=== PATIENT | female | born 1935 | race Caucasian/White ===

== ENCOUNTER 2017-03-09 20:22 | Emergency (ER) | payer MEDICARE, SELFPAY | END 2017-03-09 23:48 | disposition home or self-care (01) | PROVIDERS: Emergency Provider Emergency Medicine; Family Provider Family Medicine; Visit Provider Emergency Medicine | DX: S01.01XA Laceration without foreign body of scalp, initial encounter (principal); Z23 Encounter for immunization; W10.9XXA Fall (on) (from) unspecified stairs and steps, initial encounter; Y92.019 Unspecified place in single-family (private) house as the place of occurrence of the external cause; Z88.2 Allergy status to sulfonamides; Z88.1 Allergy status to other antibiotic agents; Z88.6 Allergy status to analgesic agent; E78.5 Hyperlipidemia, unspecified; F41.8 Other specified anxiety disorders | CPT/HCPCS: 70450; 71010; 72125; 72170; 80053; 82550; 82553; 84484; 85025; 90471; 90715; 96365; 96375; 99284; J2405 ==

== ENCOUNTER → 2017-04-17 12:04 | Outpatient (CLI) | payer MEDICARE, SELFPAY ==
--- NOTE | 2017-04-17 12:14 | XR_ITS ---
XR chest 2V Ordering Physician: Audra Salter Patient Age: 81 years: Female HISTORY: ITS.REASON: UPPER RESPIRATORY TRACT INFECTION TECHNIQUE: PA lateral chest COMPARISON : Portable chest March 09, 2017 FINDINGS Lungs are clear with nothing definitely acute. Mild hyperexpansion most evident left upper lung noted but but may be accentuated by slight rotation on today's chest film . Epidural stimulator again noted mid thoracic area fusion MR spine noted. Round dense likely calcified granuloma lateral view projected at superior retrosternal region. . Most likely Old right anterior 6 and possibly 7 healed rib fractures however these are evident on February 2017 CXR nor rib series December 2016 IMPRESSION: ------ Lungs clear no active disease . No focal pneumonia. No pneumothorax. Old healing right anterior sixth and seventh rib fractures new were not evident on February CXR
== END ==
PROVIDERS: PCP Family Medicine; Visit Provider Nurse Practitioner Family
DX: J06.9 Acute upper respiratory infection, unspecified (principal)
CPT/HCPCS: 71046

== ENCOUNTER → 2017-08-07 13:48 | Outpatient (CLI) | payer MEDICARE, SELFPAY ==
--- NOTE | 2017-08-07 13:52 | XR_ITS ---
XR chest 2V HISTORY: ITS.REASON: FATIGUE ORDERING PHYSICIAN: Nick Salguero MD PATIENT AGE: 81 years COMPARISON: 04/17/2018 FINDINGS: Unremarkable cardiovascular structures. Epidural stimulator device remains in place in the midthoracic region. Lungs are clear of acute infiltrate. There are old fractures of the right sixth and seventh ribs anteriorly as before. Calcified granulomas noted over the anterior clear space. Prior fusion of the lumbar spine. IMPRESSION: No change with no acute finding
== END ==
PROVIDERS: PCP Family Medicine; Visit Provider Family Medicine
DX: R53.83 Other fatigue (principal)
CPT/HCPCS: 71046; 93005

== ENCOUNTER → 2017-08-09 13:48 | Outpatient (CLI) | payer MEDICARE, SELFPAY | PROVIDERS: Family Provider Family Medicine; PCP Family Medicine; Visit Provider Family Medicine | DX: R53.83 Other fatigue (principal); R07.9 Chest pain, unspecified | CPT/HCPCS: 93306 ==

== ENCOUNTER → 2017-08-21 09:53 | Outpatient (POV) | payer MEDICARE, SELFPAY ==
[2017-08-21 10:02] VITALS: BP 145/83; PULSE 79; RESP 18; O2SAT 95
--- NOTE | 2017-08-21 16:36 | HMH.PMCON ---
Assessment and Plan (1) Degenerative disc disease, lumbar Current visit: Yes Status: Chronic Category: Medical Code(s): M51.36 - Other intervertebral disc degeneration, lumbar region (2) Degenerative disc disease, cervical Current visit: Yes Status: Chronic Category: Medical Code(s): M50.30 - Other cervical disc degeneration, unspecified cervical region (3) Post laminectomy syndrome Current visit: Yes Status: Chronic Category: Medical Code(s): M96.1 - Postlaminectomy syndrome, not elsewhere classified - Assessment and plan all Dx Assessment and Plan for all problems:: Patient is not a narcotic candidate at this time due to her diazepam use. Recent states she was never tried on any nonnarcotic medications. Patient states she was started on Lortab immediately. Patient was negative at her last urine drug screen at her previous pain management clinic. Patient does have a neurostimulator in place by [facility] I believe that it would be beneficial for the patient to have this turned on and potentially reprogram. I will set this up for her. Patient was given information on both injections and other modalities of pain treatment that we may be able to offer her. Patient is going to call us if she like to follow-up with us. This note was dictated using voice recognition software and may contain errors or omissions HPI - Data of Consult Consult date: 08/21/17 Requesting Physician: Nia Wilkes APRN Primary Care Provider: Nick Salguero MD Family Provider: Nick Salguero MD - Consult Narrative Reason for consult: back and neck pain History of present illness: Ms. Linda is a 81 year old female presents today for consultation in regards to her back and neck pain. Patient has had surgery on her lumbar spine and also has some disc degenerative disc disease in the lumbar spine. She has been to pain management in [place] where she was feeling Lortab 10 mg 1 p.o. twice daily. Patient states however she was taking 1-1/2 pills in the morning instead of G1. Patient is also on diazepam 10 mg 1 p.o. 3 times daily. Patient states that she has had 3 nervous breakdowns along with psychiatric treatment for several years. Patient states underwent shock treatment therapy as well. Patient states she has basal cell carcinoma however she states that she has been told by one oncologist that she has been clear of cancer. Patient is going to be seeking another opinion from another closer oncologist. Patient does have a [employer] stimulator she does not use this. Patient states she has not turned it on a long time however she does keep it fully charged. Patient states that she is not interested in injection therapy at this time. Patient states she has had this in the past with minimal relief. Patient states she would like to just receive her Lortab at this time. I discussed with the patient that due to regulations with her diazepam and ORT score we would not be able to continue her Lortab. Patient and I discussed utilizing her stimulator. Patient would like to meet with a [employer] new accounts banking representative and see if she can get better coverage. I gave the patient information on both stimulation and injections and intrathecal therapies. I do know if she would be an exact candidate for it however patient is going to review this and give us a call if she is interested in pursuing treatment with us. Of note according to her last pain treatment center she has canceled her last appointment they are also she tested negative for all substances in her urine drug screen. CC: Nia Wilkes APRN [facility] History I have reviewed the patient's past medical history: Yes Other Medical History: Reports: Arthritis Laterality Cases: Bilateral: Carpal Tunnel Release Other Surgeries: Yes: Cholecystectomy, Skin Cancer Excision - *Social History Educational Level: Completed College Alcohol Intake: never Occupational Status: re
--- NOTE | 2017-08-21 16:39 | P.CONS_ITS ---
Assessment and Plan (1) Degenerative disc disease, lumbar Current visit: Yes Status: Chronic Category: Medical Code(s): M51.36 - Other intervertebral disc degeneration, lumbar region (2) Degenerative disc disease, cervical Current visit: Yes Status: Chronic Category: Medical Code(s): M50.30 - Other cervical disc degeneration, unspecified cervical region (3) Post laminectomy syndrome Current visit: Yes Status: Chronic Category: Medical Code(s): M96.1 - Postlaminectomy syndrome, not elsewhere classified - Assessment and plan all Dx Assessment and Plan for all problems:: Patient is not a narcotic candidate at this time due to her diazepam use. Recent states she was never tried on any nonnarcotic medications. Patient states she was started on Lortab immediately. Patient was negative at her last urine drug screen at her previous pain management clinic. Patient does have a neurostimulator in place by [facility] I believe that it would be beneficial for the patient to have this turned on and potentially reprogram. I will set this up for her. Patient was given information on both injections and other modalities of pain treatment that we may be able to offer her. Patient is going to call us if she like to follow-up with us. This note was dictated using voice recognition software and may contain errors or omissions HPI - Data of Consult Consult date: 08/21/17 Requesting Physician: iNa Wilkes APRN Primary Care Provider: Nick Salguero MD Family Provider: Nick Salguero MD - Consult Narrative Reason for consult: back and neck pain History of present illness: Ms. Linda is a 81 year old female presents today for consultation in regards to her back and neck pain. Patient has had surgery on her lumbar spine and also has some disc degenerative disc disease in the lumbar spine. She has been to pain management in [place] where she was feeling Lortab 10 mg 1 p.o. twice daily. Patient states however she was taking 1-1/2 pills in the morning instead of G1. Patient is also on diazepam 10 mg 1 p.o. 3 times daily. Patient states that she has had 3 nervous breakdowns along with psychiatric treatment for several years. Patient states underwent shock treatment therapy as well. Patient states she has basal cell carcinoma however she states that she has been told by one oncologist that she has been clear of cancer. Patient is going to be seeking another opinion from another closer oncologist. Patient does have a [employer] stimulator she does not use this. Patient states she has not turned it on a long time however she does keep it fully charged. Patient states that she is not interested in injection therapy at this time. Patient states she has had this in the past with minimal relief. Patient states she would like to just receive her Lortab at this time. I discussed with the patient that due to regulations with her diazepam and ORT score we would not be able to continue her Lortab. Patient and I discussed utilizing her stimulator. Patient would like to meet with a [employer] sales representative malt liquors and see if she can get better coverage. I gave the patient information on both stimulation and injections and intrathecal therapies. I do know if she would be an exact candidate for it however patient is going to review this and give us a call if she is interested in pursuing treatment with us. Of note according to her last pain treatment center she has canceled her last appointment they are also she tested negative for all substances in her urine drug screen. CC: Nia Wilkes APRN [facility] History I have reviewed the
== END ==
PROVIDERS: Family Provider Family Medicine; PCP Family Medicine; Visit Provider Clinical Nurse Specialist Family Health
DX: M50.30 Other cervical disc degeneration, unspecified cervical region (principal); M96.1 Postlaminectomy syndrome, not elsewhere classified; M51.36 Other intervertebral disc degeneration, lumbar region
CPT/HCPCS: 99202

== ENCOUNTER → 2017-08-28 09:32 | Outpatient (POV) | payer MEDICARE, SELFPAY ==
[2017-08-28 10:00] VITALS: BP 138/84; PULSE 93; RESP 18; O2SAT 96; BMI 22.6
--- NOTE | 2017-08-28 10:17 | HMH.PAINSOAP ---
[facility] Pain Management SOAP Note Subjective:: Patient is a 81-year-old white female who presents today for follow-up. Patient requested to see us today because she states she did not know if she was going to have her narcotic prescription written for her not. I discussed this with her. Patient is not a narcotic candidate due to diazepam use, past psychiatric issues, her inappropriate taking of medication according to her she takes more pills than prescribed. Patient also had a urine drug screen at her last pain management clinic visit that was negative for all substances. Patient has not been discharged from this clinic. Patient was seen on Monday by [facility] loss prevention representative to help reprogram her stimulator. And and I discussed her returning to Dr. Nance and discussing medication management. Patient states she is unsure of who Dr. Nance is. Patient had been receiving medication from him for the past 2 months. I told her that I felt like she should return to her pain clinic in [place] to discuss care with them. I did give her options as far as therapies that we would be able to utilize. She is uninterested in all of these. Objective:: Physical Exam General: Alert and oriented x3, no acute distress, pleasant and cooperative, [on room air] Lungs: Resps E/U, Symmetrical chest expansion, Eyes: PERRL Musculoskeletal: Flexion and extension of lumbar spine somewhat guarded secondary to pain, deep tendon reflexes normal, strength in upper and lower extremities [5/5], [abnormal gait noted] Neurological: speech clear, emulsion coater equal, no gross sensory deficits Assessment:: Degenerative disc disease of the lumbar spine, degenerative disc disease of the cervical spine, postlaminectomy syndrome Plan:: Patient left the office stating that she was going to call her previous pain management clinic. I told her she was interested in any of the therapeutic options that I gave her she was welcome to give us a call back. This note was dictated using voice recognition software and may contain errors or omissions
--- NOTE | 2017-08-28 10:20 | P.CONS_ITS ---
[facility] Pain Management SOAP Note Subjective:: Patient is a 81-year-old white female who presents today for follow-up. Patient requested to see us today because she states she did not know if she was going to have her narcotic prescription written for her not. I discussed this with her. Patient is not a narcotic candidate due to diazepam use, past psychiatric issues, her inappropriate taking of medication according to her she takes more pills than prescribed. Patient also had a urine drug screen at her last pain management clinic visit that was negative for all substances. Patient has not been discharged from this clinic. Patient was seen on Monday by [facility] international sales representative to help reprogram her stimulator. And and I discussed her returning to Dr. Nance and discussing medication management. Patient states she is unsure of who Dr. Nance is. Patient had been receiving medication from him for the past 2 months. I told her that I felt like she should return to her pain clinic in [place] to discuss care with them. I did give her options as far as therapies that we would be able to utilize. She is uninterested in all of these. Objective:: Physical Exam General: Alert and oriented x3, no acute distress, pleasant and cooperative, [ on room air] Lungs: Resps E/U, Symmetrical chest expansion, Eyes: PERRL Musculoskeletal: Flexion and extension of lumbar spine somewhat guarded secondary to pain, deep tendon reflexes normal, strength in upper and lower extremities [5/5], [abnormal gait noted] Neurological: speech clear, maple sugar maker equal, no gross sensory deficits Assessment:: Degenerative disc disease of the lumbar spine, degenerative disc disease of the cervical spine, postlaminectomy syndrome Plan:: Patient left the office stating that she was going to call her previous pain management clinic. I told her she was interested in any of the therapeutic options that I gave her she was welcome to give us a call back. This note was dictated using voice recognition software and may contain errors or omissions
== END ==
PROVIDERS: Family Provider Family Medicine; PCP Family Medicine; Visit Provider Clinical Nurse Specialist Family Health
DX: M50.30 Other cervical disc degeneration, unspecified cervical region (principal); M51.36 Other intervertebral disc degeneration, lumbar region
CPT/HCPCS: 99212

== ENCOUNTER → 2017-09-26 09:31 | Outpatient (CLI) | payer MEDICARE, SELFPAY ==
--- NOTE | 2017-09-26 09:39 | XR_ITS ---
XR hip RT 2-3V w/pelvis HISTORY: Posttraumatic pain ITS.REASON: FALL ON RIGHT HIP X 1 WEEK AGO ORDERING PHYSICIAN: Nick Salguero MD PATIENT AGE: 81 years COMPARISON: 01/09/2017 FINDINGS: No acute fracture or dislocation. Lucency noted along the right ilium medially and could be due to postsurgical change. Injection granulomas are present bilaterally. Prior fusion of the lower lumbar spine with epidural stimulator device noted. IMPRESSION: No acute finding
== END ==
PROVIDERS: PCP Family Medicine; Visit Provider Family Medicine
DX: M25.551 Pain in right hip (principal); R20.2 Paresthesia of skin
CPT/HCPCS: 73502

== ENCOUNTER → 2017-10-13 08:46 | Outpatient (CLI) | payer MEDICARE, SELFPAY ==
--- NOTE | 2017-10-13 08:48 | MM_ITS ---
MM Dig screening mamm BI w/CAD ORDERING PHYSICIAN : Nick Salguero MD PATIENT AGE: 81 years GENDER: Female HISTORY. Screening. No hormones no new complaints no breast procedures. Note history of basal cell cancer COMPARISON: Previous studies from [facility] dated August 2015 and August 2016 TECHNIQUE: Standard CC and MLO images were obtained. R2 CAD reviewed. Also axillary cc view right and left breast FINDINGS: . RIGHT BREAST:Overall stable appearance. Against initially seen at the lateral breast dissipates on a repeat axillary cc view and consistent, stable since last year. LEFT BREAST:No new areas of concern. Follow-up in one year The scattered calcifications at the deep central breast are of fair stable since 2016. IMPRESSION: ...... Stable bilateral mammogram. Follow-up in one year recommended. BI-RADS Category: 2 Benign Finding(s) RECOMMENDED FOLLOW-UP: 1YR 1 YEAR FOLLOW-UP (A letter has been sent to the patient regarding results of the study.)
== END ==
PROVIDERS: Family Provider Family Medicine; PCP Family Medicine; Visit Provider Family Medicine
DX: Z12.31 Encounter for screening mammogram for malignant neoplasm of breast (principal)
CPT/HCPCS: 77067

== ENCOUNTER → 2017-11-15 10:50 | Outpatient (CLI) | payer MEDICARE, SELFPAY | PROVIDERS: PCP Family Medicine; Visit Provider Family Medicine | DX: R55 Syncope and collapse (principal) | CPT/HCPCS: 93225; 93226 ==

== ENCOUNTER → 2017-11-22 13:52 | Outpatient (CLI) | payer MEDICARE, SELFPAY ==
--- NOTE | 2017-11-22 | CI_ITS ---
Cerebrovascular Exam Indications: 780.2 Syncope and collapse. 780.4 Dizziness and giddiness. IMPRESSIONS 1. The bilateral vertebral arteries are patent with normal antegrade flow. 2. Study suggests less than 20% stenosis involving the right internal carotid artery. 3. Study suggests less than 20% stenosis involving the left internal carotid artery. History: Syncope. Carotid duplex study. Complete study and Doppler flow study including spectral analysis, color and dupree scale imaging. Height: Height: 162.6cm. Height: 64in. Weight: Weight: 62.6kg. Weight: 137.7lb. Body mass index: BMI: 23.7kg/m^2. Body surface area: BSA: 1.69m^2. Location: Vascular laboratory. Patient status: Outpatient. Tables: Arterial flow: + +--------+--------+ Location V sys V ed + +--------+--------+ Right CCA - proximal 59.1cm/s 15.1cm/s + +--------+--------+ Right CCA - distal 48cm/s 12.7cm/s + +--------+--------+ Right ECA 72.3cm/s -------- + +--------+--------+ Right ICA - proximal 48cm/s 14.8cm/s + +--------+--------+ Right ICA - mid 66.8cm/s 20.1cm/s + +--------+--------+ Right ICA - distal 86.3cm/s 28.6cm/s + +--------+--------+ Right vertebral 49cm/s -------- + +--------+--------+ Left CCA - proximal 73.5cm/s 17.6cm/s + +--------+--------+ Left CCA - distal 54.6cm/s 14.9cm/s + +--------+--------+ Left ECA 63.4cm/s -------- + +--------+--------+ Left ICA - proximal 43.7cm/s 14.4cm/s + +--------+--------+ Left ICA - mid 85.5cm/s 24.8cm/s + +--------+--------+ Left ICA - distal 82.8cm/s 25.1cm/s + +--------+--------+ Left vertebral 37.5cm/s -------- + +--------+--------+ Velocity ratios: + + + + + + Right, V sys Right, V ed Left, V sys Left, V ed + + + + + + Max ICA/dist CCA 1.8 2.25 1.57 1.68 + + + + + + (Report amended ) Electronically signed by: Aleksandr Ocasio [id number]
--- NOTE | 2017-11-22 13:56 | CT_ITS ---
CT head/brain wo con HISTORY: ITS.REASON: SYNCOPE, CLOSED HEAD INJURY, pain, trauma to the posterior skull on the right ORDERING PHYSICIAN: Nick Salguero MD PATIENT AGE: 82 years COMPARISON: None TECHNIQUE: Axial images obtained without contrast. Brain and bone windows reviewed. All CT scans at the facility use one or more dose reduction, viz: automated exposure control, ma/kV adjustment per patient size (including targeted exams where dose is matched to indication, i.e. head), or iterative reconstruction technique. FINDINGS: No midline shift, mass effect, intracranial hemorrhage, hydrocephalus, or extra-axial fluid collection is evident. Periventricular ischemic gliotic changes are present. The calvarium has an unremarkable appearance. There is a small amount fluid in the left mastoid sinus. No sinus air-fluid levels.. IMPRESSION: 1. No acute intracranial findings. 2. Small left mastoid effusion
--- NOTE | 2017-11-22 16:01 | XR_ITS ---
EXAM: XR lumbar spine min 4V HISTORY: ITS.REASON: LOW BACK PAIN ORDERING PHYSICIAN: Nick Salguero MD PATIENT AGE: 82 years COMPARISON: 06/20/2007 FINDINGS: There has been prior posterior fusion with interpedicular screws at L3, L4, and L5. There is good alignment. There is severe degenerative disc disease at L2-L3 with mild retrolisthesis of L2 on L3 of approximately 8 mm. Degenerative disc disease is also present at L5-S1. There is a neurostimulator device present in the epidural region at T8 and T9 area. There is mild levoscoliosis of the lumbar spine. No fracture or dislocation. No lytic or blastic change. IMPRESSION: 1. Prior lumbar fusion from L3 to L5. 2. Severe degenerative disc disease at L2-L3 and L5-S1 with mild retrolisthesis of L2 on L3 of approximately 8 mm
--- NOTE | 2017-11-22 16:01 | XR_ITS ---
XR coccyx 2V CLINICAL INDICATION: ITS.REASON: LOW BACK PAIN ORDERING PHYSICIAN: Nick Salguero MD PATIENT AGE: 82 years Comparison: None FINDINGS: The sacrum and coccyx have an unremarkable appearance. No fracture or dislocation. Irregular density is present along the medial aspect of the ileum on the right which has a somewhat similar appearance on 09/26/2017. This is nonspecific having both sclerotic and lucent areas possibly related to prior area of bone harvesting site. A destructive lesion however is not excluded based on the radiographic appearance. Please correlate with patient's surgical history. CT may be of further value if clinically warranted. IMPRESSION: 1. Negative coccyx. 2. Mixed sclerotic and lucent lesion of the right ilium which could be related to prior bone harvesting site/surgery or could represent a true bone lesion
== END ==
PROVIDERS: Family Provider Family Medicine; PCP Family Medicine; Visit Provider Family Medicine
DX: R55 Syncope and collapse (principal); S09.90XA Unspecified injury of head, initial encounter; M54.5 Low back pain
CPT/HCPCS: 70450; 72110; 72220; 93880

== ENCOUNTER → 2018-01-23 11:50 | Outpatient (CLI) | payer MEDICARE, SELFPAY ==
--- NOTE | 2018-01-23 11:53 | XR_ITS ---
XR knee RT 3V HISTORY: ITS.REASON: RT KNEE PAIN, FALL INJURY ORDERING PHYSICIAN: Nick Salguero MD PATIENT AGE: 82 years FINDINGS: Status post total knee replacement. No fracture or dislocation. No change from 07/29/2016. IMPRESSION: Status post total knee replacement with no acute finding
== END ==
PROVIDERS: PCP Family Medicine; Visit Provider Family Medicine
DX: M25.561 Pain in right knee (principal)
CPT/HCPCS: 73562

== ENCOUNTER → 2018-06-11 12:46 | Outpatient (CLI) | payer MEDICARE, SELFPAY ==
[2018-06-11 14:59] LABS: Thyroid Stimulating Hormone 1.73 uIU/ml (0.358-3.740)
== END ==
PROVIDERS: Visit Provider Specialist
DX: R25.1 Tremor, unspecified (principal)
CPT/HCPCS: 36415; 84443

== ENCOUNTER 2018-11-26 15:02 | Observation (INO) ==
--- NOTE | 2018-11-26 15:25 | History & Physical Report ---
*Admission Date: 11/26/18 <Audra Salter 11/26/18 15:27> *Chief complaint: weakness; falls; AMS <JoieAudra 11/26/18 15:27> *History of present illness: Ms. Linda is an 83-year-old female with a history of anxiety and depression, migraines, ulcers, degenerative disc disease, osteoarthritis, and hyperlipidemia who presented to the office of [facility] today with weakness and unsteadiness with 2 recent falls, drooling, changes in her voice, and strangling when she eats or drinks.. She presented with her development director who reports that she is not eating well and may not be taking her medications correctly. Patient reports constipation and urinary frequency with incontinence. She states that she has been unable to get out of the chair by herself and she simply cannot care for herself at this time. She denies chest pain, shortness of breath, nausea/vomiting and diarrhea. <Audra Salter 11/26/18 16:23> [facility] History Medical History: Reports:: Anxiety, Cancer, Depression, Gastroesophageal Reflux Disease(GERD), Ulcer Denies:: Diabetes Mellitus Type 1, Diabetes Mellitus Type 2 <JoieAudra 11/26/18 16:23> *Have you ever received a pneumonia vaccine?: Yes <JoieAudra 11/26/18 15:27> *Have you received a flu vaccine this season?: Yes <JoieAudra 11/26/18 15:27> Other Medical History: Reports: Arthritis, Cataracts <Audra Salter 11/26/18 15:27> Laterality Cases: Bilateral: Carpal Tunnel Release <Audra Salter 11/26/18 15:27> Other Surgeries: Yes: Cholecystectomy, Hysterectomy-Total, Skin Cancer Excision, Other <Audra Salter 11/26/18 15:27> Amputation: No <Audra Salter 11/26/18 15:27> Fractures: No <Audra Salter 11/26/18 15:27> - *Social History Smoking Status: Never smoker <Audra Salter 11/26/18 15:27> Alcohol Intake: never <Audra Salter 11/26/18 15:27> Substance Use Type: denies use <Radha Salterhy 11/26/18 15:27> *Occupational Status:: retired <Radha Salterhy 11/26/18 15:27> Housing: house <Radha Salterhy 11/26/18 15:27> Household Members: none <Radha Salterhy 11/26/18 15:27> *Travel in the last 8 weeks: None <Radha Salterhy 11/26/18 16:23> - Psychiatric History Pschychiatric History:: Reports:: Anxiety, Depression <Radha Salterhy 11/26/18 15:27> Family Hx:: Cancer, Coronary Artery Disease <JoieAudra 11/26/18 16:23> Review of Systems - Constitutional Denies fever(s), Denies headache(s) <JoieAudra 11/26/18 16:23> - Eyes Denies change in vision <JoieAudra 11/26/18 16:23> - ENT Reports change in voice, Reports poor balance, Reports difficulty swallowing, Denies ear pain, Denies headache(s), Denies sore throat <JoieAudra 11/26/18 16:23> - *Cardiovascular Denies chest pain, Denies shortness of breath, Denies irregular heart rhythm, Denies leg swelling <JoieAudra 11/26/18 16:23> - *Respiratory Denies cough, Denies shortness of breath, Denies coughing up blood <JoieAudra 11/26/18 16:23> - *Gastrointestinal Reports constipation (Last stool was 4 to 5 days ago), Denies abdominal pain, Denies change in stools, Denies bright, red blood in stools, Denies loose stools, Denies nausea, Denies vomiting <JoieAudra 11/26/18 16:23> - *Genitourinary Reports urinary incontinence, Denies painful urination, Denies blood in urine <JoieAudra 11/26/18 16:23> Comments: Urinary frequency and large amounts <JoieAudra 11/26/18 16:23> - *Musculoskeletal Reports joint pain, Reports muscle weakness, Denies body aches <JoieAudra 11/26/18 16:23> - *Neurologic Reports abnormal speech, Reports unsteadiness, Reports frequent falls, Reports tremor(s), Denies seizure-like activity <JoieAudra - 11/26/18 16:23> - Psychiatric Reports anxiety <Audra Salter - 11/26/18 16:23> Meds Home Medications Medication Instructions Recorded Confirmed Type aspirin 81 mg tablet,delayed 81 mg PO DAILY tab 09/06/17 11/26/18 History release cholecalciferol (vitamin D3) 1,000 1,000 unit PO DAILY cap 09/06/17 11/26/18 History unit capsule diazepam 10 mg tablet 10 mg PO TID 09/06/17 11/26/18 History hydrocodone 10 mg-acetaminophen 1 tab PO QID tab 09/06/17 11/26/18 History 325 mg tablet pravastatin 20 mg tablet 20 mg PO QHS 09/06/17 11/26/18 History tizanidine 4 mg capsule 4 mg PO QHS cap 09/06/17 11/26/18 History trazodone 50 mg tablet 100 mg PO QHS PRN #90 tab 09/03/18 11/26/18 History Docusate Sodium [Colace] 100 mg PO BID 11/26/18 11/26/18 History Ferrous Sulfate [Ferrous Sulfate 325 mg PO DAILY 11/26/18 11/26/18 History 325mg Tablet] Nitrofurantoin Monohyd/M-Cryst 100 mg PO BID 11/26/18 11/26/18 History [Nitrofurantoin [place]-Mcr 100 mg] Perphenazine 2 mg PO TID 11/26/18 11/26/18 History <Nick Salguero - 11/26/18 20:20> Allergies Allergy/AdvReac Type Severity Reaction Status Date / Time buspirone [From BuSpar] Allergy Mild Dizziness Verified 11/26/18 16:38 citalopram [From Celexa] Allergy Mild Blurry Verified 11/26/18 16:38 Vision primidone Allergy Mild Dizziness Verified 11/26/18 16:38 carbamazepine Allergy Unknown N/V, HIGH Verified 09/03/18 09:42 TEMP cefaclor [From CECLOR] Allergy Unknown I-HIVES Verified 09/03/18 09:42 celecoxib [From CELEBREX] Allergy Unknown UNKNOWN Verified 09/03/18 09:42 codeine Allergy Unknown NA-NAUSEA/V Verified 09/03/18 09:42 OMITING levofloxacin Allergy Unknown LEGS Verified 09/03/18 09:42 JERKING sulfamethoxazole Allergy Unknown THRUSH Verified 09/03/18 09:42 [From BACTRIM] trimethoprim [From BACTRIM] Allergy Unknown THRUSH Verified 09/03/18 09:42 olanzapine [From Zyprexa] AdvReac Mild Verified 11/26/18 16:38 <Nick Salguero - 11/26/18 20:20> Exam Vital signs and Labs for Last 24 Hours: Temp Pulse Resp BP Pulse Ox 99.3 F 80 17 166/75 H 95 11/26/18 19:42 11/26/18 19:42 11/26/18 19:42 11/26/18 19:42 11/26/18 19:42 Laboratory Results - last 24 hr 11/26/18 16:05: WBC 10.2, RBC 3.99 L, Hgb 12.1 L, Hct 38.0, MCV 95.3, MCH 30.2, MCHC 31.7 L, RDW 13.7, Plt Count 282, MPV 7.3 L, Neut % (Auto) 69.2, Lymph % (Auto) 21.4, [place] % (Auto) 8.0, Eos % (Auto) 1.2, Baso % (Auto) 0.3, Neut # (Auto) 7.1, Lymph # (Auto) 2.2, [place] # (Auto) 0.8, Eos # (Auto) 0.1, Baso # (Auto) 0.0 11/26/18 16:05: PT 10.5, INR 1.01, APTT 24.4 11/26/18 16:05: Sodium 141, Potassium 3.6, Chloride 102, Carbon Dioxide 30, Anion Gap 12.6, BUN 25 H, Creatinine 1.14 H, Estimated Creat Clear 37, Estimated GFR 46 L, Est GFR ( Amer) 55 L, Glucose 119 H, Calcium 9.2, Total Bilirubin 0.3, AST 19, ALT 23, Alkaline Phosphatase 65, Total Protein 7.5, Albumin 3.6, Globulin 3.9 H, Albumin/Globulin Ratio 0.9 L <Nick Salguero - 11/26/18 20:20> I & O for Last 24 hours: Intake & Output 11/24/18 11/25/18 11/26/18 11/27/18 11:59 11:59 11:59 11:59 Intake Total 50 / 50 Balance 50 / 50 Weight 135 lb <Nick Salguero - 11/26/18 20:20> - Constitutional no acute distress, thin [facility]/26/[facility] 16:23> Comments: Frail <Radha Salterhy 11/26/18 16:23> - *Routine HEENT Exam Head: Present: normocephalic (Thinning hair), atraumatic <[facility] 11/26/18 16:23> Eye: Present: EOMI, PERRL. Absent: conjunctival icterus, scleral injection <Radha Salterhy 11/26/18 16:23> ENT: Present: mucous membranes dry, oropharynx clear, nares patent, TM's clear bilaterally <[facility] 11/26/18 16:23> - *Routine Neck Exam Present: supple. Absent: carotid bruit, lymphadenopathy, thyromegaly <[facility] 11/26/18 16:23> - *Routine Respiratory Exam Present: CTA bilaterally (Anteriorly and posteriorly) <Audra Salter 12/06 16:23> - *Routine Cardiovascular Exam Present: RRR [facility] 11/26/18 16:23> - *Routine Abdominal Exam Present: soft, normoactive bowel sounds. Absent: tenderness, distended <Audra Salter 11/26/18 16:23> - *Routine Extremities Exam Absent: edema [facility]> Comments: No leg edema <[facility] 11/26/[facility] 16:23> - *Routine Neurological Exam Present: alert, oriented X3, CN II-XII intact (Muscle strength is diminished in all extremities and is equal), moving all extremities, normal speech (Speech is slow and soft), tremors <[facility] 11/26/18 16:23> - Routine Psychiatric Exam Present: normal affect, normal thought process, cooperative <[facility] 11/26/18 16:23> Assessment and Plan (1) Dysphagia Current visit: Yes Status: Acute Category: Medical Code(s): R13.10 - Dysphagia, unspecified (2) Altered mental status Current visit: Yes Status: Acute Category: Medical Code(s): R41.82 - Altered mental status, unspecified (3) Weakness Current visit: Yes Status: Acute Category: Medical Code(s): R53.1 - Weakness (4) Unsteady gait Current visit: Yes Status: Acute Category: Medical Code(s): R26.81 - Unsteadiness on feet (5) Frequent falls Current visit: Yes Status: Acute Category: Medical Code(s): R29.6 - Repeated falls (6) GERD (gastroesophageal reflux disease) Current visit: Yes Status: Acute Category: Medical Code(s): K21.9 - Gastro-esophageal reflux disease without esophagitis (7) Anxiety and depression Current visit: Yes Status: Chronic Category: Medical Code(s): F41.9 - Anxiety disorder, unspecified; F32.9 - Major depressive disorder, single episode, unspecified (8) Benign essential tremor Current visit: Yes Status: Chronic Category: Medical Code(s): G25.0 - Essential tremor (9) Anemia Current visit: Yes Status: Chronic Category: Medical Code(s): D64.9 - Anemia, unspecified (10) Dehydration Current visit: Yes Status: Acute Category: Medical Code(s): E86.0 - Dehydration (11) Urinary frequency Current visit: Yes Status: Acute Category: Medical Code(s): R35.0 - Frequency of micturition (12) Urinary incontinence Current visit: Yes Status: Acute Category: Medical Code(s): R32 - Unspecified urinary incontinence (13) Constipation Current visit: Yes Status: Acute Category: Medical Code(s): K59.00 - Constipation, unspecified (14) Degenerative disc disease, cervical Current visit: No Status: Chronic Category: Medical Code(s): M50.30 - Other cervical disc degeneration, unspecified cervical region <NoemyNick Kurt - 11/26/18 20:20> (1) Dysphagia Current visit: Yes Status: Acute Category: Medical Code(s): R13.10 - Dysphagia, unspecified (2) Altered mental status Current visit: Yes Status: Acute Category: Medical Code(s): R41.82 - Altered mental status, unspecified (3) Weakness Current visit: Yes Status: Acute Category: Medical Code(s): R53.1 - Weakness (4) Unsteady gait Current visit: Yes Status: Acute Category: Medical Code(s): R26.81 - Unsteadiness on feet (5) Frequent falls Current visit: Yes Status: Acute Category: Medical Code(s): R29.6 - Repeated falls (6) GERD (gastroesophageal reflux disease) Current visit: Yes Status: Acute Category: Medical Code(s): K21.9 - Gastro-esophageal reflux disease without esophagitis (7) Anxiety and depression Current visit: Yes Status: Chronic Category: Medical Code(s): F41.9 - Anxiety disorder, unspecified; F32.9 - Major depressive disorder, single episode, unspecified (8) Benign essential tremor Current visit: Yes Status: Chronic Category: Medical Code(s): G25.0 - Essential tremor (9) Anemia Current visit: Yes Status: Chronic Category: Medical Code(s): D64.9 - Anemia, unspecified (10) Dehydration Current visit: Yes Status: Acute Category: Medical Code(s): E86.0 - Dehydration (11) Urinary frequency Current visit: Yes Status: Acute Category: Medical Code(s): R35.0 - Frequency of micturition (12) Urinary incontinence Current visit: Yes Status: Acute Category: Medical Code(s): R32 - Unspecified urinary incontinence (13) Constipation Current visit: Yes Status: Acute Category: Medical Code(s): K59.00 - Constipation, unspecified (14) Degenerative disc disease, cervical Current visit: No Status: Chronic Category: Medical Code(s): M50.30 - Other cervical disc degeneration, unspecified cervical region <SalterAudra - 11/26/18 15:39> - Assessment and plan all Dx Assessment and Plan for all problems:: Patient seen and examined. Concur with above assessment and plan. She presented to the office today with constellation of symptoms suspicious for stroke. Family had noticed some episodes of confusion and she has had several recent falls and complains of slurred speech, dysphagia, weakness, inability to walk. She is admitted for further evaluation particularly to rule out possible stroke. <Nick Salguero - 11/26/18 20:20> Speech, OT and PT evaluations. Lab work. CT of the head. Stroke evaluations. Meds as per orders <Audra Salter - 11/26/18 16:23>
[2018-11-26 16:25] LABS: Basophils % 0.3 % (0.1-2.0); Eosinophils # 0.1 K/mm3 (0.0-0.4); Eosinophils % 1.2 % (0.1-12.0); Hemoglobin 12.1 g/dL (12.2-16.2); Lymphocytes # 2.2 K/mm3 (0.7-4.5); Lymphocytes % 21.4 % (10-50); Mean Corpuscular HGB Conc 31.7 g/dL (31.8-35.4); Mean Corpuscular Volume 95.3 fl (81-99); Mean Platelet Volume 7.3 fl (7.4-10.4); Monocytes # 0.8 K/mm3 (0.1-1.0); Neutrophils # 7.1 K/mm3 (1.8-7.8); Neutrophils % 69.2 % (37.0-80.0); Platelet Count 282 K/mm3 (142-424); Red Blood Count 3.99 M/mm3 (4.20-5.40); Red Cell Distribution Width 13.7 % (11.5-17.5); White Blood Count 10.2 K/mm3 (4.8-10.8)
[2018-11-26 16:34] LABS: Activated Partial Thrombo Time 24.4 seconds (23.6-34.0); INR 1.01 (0.9-1.1); Prothrombin Time 10.5 seconds (9.4-11.8)
[2018-11-26 16:36] LABS: Albumin Level 3.6 gm/dL (3.4-5.0); Albumin/Globulin Ratio 0.9 (1.1-1.8); Anion Gap 12.6 mEq/L (5-15); Bilirubin,Total 0.3 mg/dL (0.2-1.0); Calcium 9.2 mg/dL (8.5-10.1); Globulin 3.9 gm/dl (1.3-3.2); Total Protein,Serum 7.5 gm/dL (6.4-8.2)
[2018-11-27 03:31] LABS: Microscopic, Urine URINE MICROSCOPIC (MICROSCOPIC)
[2018-11-27 03:32] LABS: Appearance,Urine CLEAR (Clear); Bilirubin,Urine Negative (Negative); Blood, Urine Negative (Negative); Color,Urine YELLOW (Yellow); Glucose,Urine (UA) Negative (Negative); Ketones,Urine Negative (Negative); Leukocyte Esterase,Urine Negative (Negative); Protein,Urine Negative (Negative); Urobilinogen,Urine 0.2 EU/dl (0.2)
[2018-11-27 04:10] LABS: Bacteria,Urine Trace /lpf
--- NOTE | 2018-11-27 07:33 | Pharmacy Consult Notes ---
[facility] Pharmacy VTE Monitoring - Patient Demographics Admission date: 11/26/18 Report Date: 11/27/18 Time: 07:33 Allergies/Adverse Reactions: Patient Allergies buspirone [From BuSpar] Allergy (Mild, Verified 11/26/18 16:38) Dizziness citalopram [From Celexa] Allergy (Mild, Verified 11/26/18 16:38) Blurry Vision primidone Allergy (Mild, Verified 11/26/18 16:38) Dizziness carbamazepine Allergy (Unknown, Verified 09/03/18 09:42) N/V, HIGH TEMP cefaclor [From CECLOR] Allergy (Unknown, Verified 09/03/18 09:42) I-HIVES celecoxib [From CELEBREX] Allergy (Unknown, Verified 09/03/18 09:42) UNKNOWN codeine Allergy (Unknown, Verified 09/03/18 09:42) NA-NAUSEA/VOMITING levofloxacin Allergy (Unknown, Verified 09/03/18 09:42) LEGS JERKING sulfamethoxazole [From BACTRIM] Allergy (Unknown, Verified 09/03/18 09:42) THRUSH trimethoprim [From BACTRIM] Allergy (Unknown, Verified 09/03/18 09:42) THRUSH olanzapine [From Zyprexa] Adverse Reaction (Mild, Verified 11/26/18 16:38) Height: 1.63 m Weight: 61.263 kg Patient Problems: Current Active Problems Dysphagia (Acute) Altered mental status (Acute) Weakness (Acute) Unsteady gait (Acute) Frequent falls (Acute) GERD (gastroesophageal reflux disease) (Acute) Anxiety and depression (Chronic) Benign essential tremor (Chronic) Anemia (Chronic) Dehydration (Acute) Urinary frequency (Acute) Urinary incontinence (Acute) Constipation (Acute) - VTE Risk Labs: VTE Related Lab Results Hgb 12.1 g/dL (12.2-16.2) L 11/26/18 16:05 Hct 38.0 % (37.0-47.0) 11/26/18 16:05 Plt Count 282 K/mm3 (142-424) 11/26/18 16:05 PT 10.5 seconds (9.4-11.8) 11/26/18 16:05 INR 1.01 (0.9-1.1) 11/26/18 16:05 APTT 24.4 seconds (23.6-34.0) 11/26/18 16:05 BUN 25 mg/dL (7-18) H 11/26/18 16:05 Creatinine 1.14 mg/dL (0.55-1.02) H 11/26/18 16:05 Estimated Creat Clear 37 mL/min (50-200) 11/26/18 16:05 Was VTE Risk Assessment Performed: Yes VTE Score: 1 VTE Risk Level: Very Low Risk - Prophylaxis VTE Prophylaxis Ordered?: Yes Types of VTE Prophylaxis: TEDS Knee High Location of Applied Device: Bilateral Lower Extremeties - VTE Diagnosis Confirmed Treatment or plan recommended: Continue Current Treatment
--- NOTE | 2018-11-27 08:34 | Progress Note ---
<Audra Salter - Last Filed: 11/27/18 08:31> Internal Medicine - PN: Subj *Date: 11/27/18 *Time: 08:31 Interval history: Patient slept very little last night. She awakened with a headache. Pain medication did not help much. She ate very poorly last evening and only a few bites this a.m. for breakfast. OT did assist her up to a chair earlier this a.m. for breakfast. She is voiding frequently. She has had no stools. She denies chest pain and shortness of breath. Exam Vital signs and Labs for Last 24 Hours: Temp Pulse Resp BP Pulse Ox 98.7 F 79 17 144/68 H 93 L 11/27/18 07:50 11/27/18 07:50 11/27/18 07:50 11/27/18 07:50 11/27/18 07:50 Laboratory Results - last 24 hr 11/26/18 16:05: WBC 10.2, RBC 3.99 L, Hgb 12.1 L, Hct 38.0, MCV 95.3, MCH 30.2, MCHC 31.7 L, RDW 13.7, Plt Count 282, MPV 7.3 L, Neut % (Auto) 69.2, Lymph % (Auto) 21.4, [place] % (Auto) 8.0, Eos % (Auto) 1.2, Baso % (Auto) 0.3, Neut # (Auto) 7.1, Lymph # (Auto) 2.2, [place] # (Auto) 0.8, Eos # (Auto) 0.1, Baso # (Auto) 0.0 11/26/18 16:05: PT 10.5, INR 1.01, APTT 24.4 11/26/18 16:05: Sodium 141, Potassium 3.6, Chloride 102, Carbon Dioxide 30, Anion Gap 12.6, BUN 25 H, Creatinine 1.14 H, Estimated Creat Clear 37, Estimated GFR 46 L, Est GFR ( Amer) 55 L, Glucose 119 H, Calcium 9.2, Total Bilirubin 0.3, AST 19, ALT 23, Alkaline Phosphatase 65, Total Protein 7.5, Albumin 3.6, Globulin 3.9 H, Albumin/Globulin Ratio 0.9 L 11/27/18 03:25: Urine Color Yellow, Urine Appearance Clear, Urine pH 8.0, Ur Specific [place] 1.010, Urine Protein Negative, Urine Glucose (UA) Negative, Urine Ketones Negative, Urine Blood Negative, Urine Nitrate Negative, Urine Bilirubin Negative, Urine Urobilinogen 0.2, Ur Leukocyte Esterase Negative, Urine RBC 3-5, Urine WBC 3-5, Urine Bacteria Trace I & O for Last 24 hours: Intake & Output 11/24/18 11/25/18 11/26/18 11/27/18 11:59 11:59 11:59 11:59 Intake Total 410 / 410 Balance 410 / 410 Weight 135 lb 1 oz Radiology Reports for the Last 24 Hours: CT and CTA of the head reported as negative - Constitutional no acute distress Comments: Sitting in recliner at bedside. Appears comfortable. - *Routine Respiratory Exam Present: CTA bilaterally (Anteriorly and posteriorly) - *Routine Cardiovascular Exam Present: RRR - *Routine Abdominal Exam Present: soft, normoactive bowel sounds. Absent: tenderness, distended - *Routine Extremities Exam Absent: edema, calf tenderness - *Routine Neurological Exam Present: alert, oriented X3 Assessment and Plan (1) Dysphagia Current visit: Yes Status: Acute Category: Medical Code(s): R13.10 - Dysphagia, unspecified (2) Altered mental status Current visit: Yes Status: Acute Category: Medical Code(s): R41.82 - Altered mental status, unspecified (3) Weakness Current visit: Yes Status: Acute Category: Medical Code(s): R53.1 - Weakness (4) Unsteady gait Current visit: Yes Status: Acute Category: Medical Code(s): R26.81 - Unsteadiness on feet (5) Frequent falls Current visit: Yes Status: Acute Category: Medical Code(s): R29.6 - Repeated falls (6) GERD (gastroesophageal reflux disease) Current visit: Yes Status: Acute Category: Medical Code(s): K21.9 - Gastro-esophageal reflux disease without esophagitis (7) Anxiety and depression Current visit: Yes Status: Chronic Category: Medical Code(s): F41.9 - Anxiety disorder, unspecified; F32.9 - Major depressive disorder, single episode, unspecified (8) Benign essential tremor Current visit: Yes Status: Chronic Category: Medical Code(s): G25.0 - Essential tremor (9) Anemia Current visit: Yes Status: Chronic Category: Medical Code(s): D64.9 - Anemia, unspecified (10) Dehydration Current visit: Yes Status: Acute Category: Medical Code(s): E86.0 - Dehydration (11) Urinary frequency Current visit: Yes Status: Acute Category: Medical Code(s): R35.0 - Frequency of micturition (12) Urinary incontinence Current visit: Yes Status: Acute Category: Medical Code(s): R32 - Unspecified urinary incontinence (13) Constipation Current visit: Yes Status: Acute Category: Medical Code(s): K59.00 - Constipation, unspecified (14) Degenerative disc disease, cervical Current visit: No Status: Chronic Category: Medical Code(s): M50.30 - Other cervical disc degeneration, unspecified cervical region - Assessment and plan all Dx Assessment and Plan for all problems:: Continue with OT, PT and speech evaluation. Disposition plans initiated. Will start MiraLAX for constipation. Bowels have not moved in 4 to 5 days <Nick Salguero - Last Filed: 11/27/18 08:55> Internal Medicine - PN: Subj *Date: 11/27/18 *Time: 08:52 Exam Vital signs and Labs for Last 24 Hours: Temp Pulse Resp BP Pulse Ox 98.7 F 79 17 144/68 H 93 L 11/27/18 07:50 11/27/18 07:50 11/27/18 07:50 11/27/18 07:50 11/27/18 07:50 Laboratory Results - last 24 hr 11/26/18 16:05: WBC 10.2, RBC 3.99 L, Hgb 12.1 L, Hct 38.0, MCV 95.3, MCH 30.2, MCHC 31.7 L, RDW 13.7, Plt Count 282, MPV 7.3 L, Neut % (Auto) 69.2, Lymph % (Auto) 21.4, [place] % (Auto) 8.0, Eos % (Auto) 1.2, Baso % (Auto) 0.3, Neut # (Auto) 7.1, Lymph # (Auto) 2.2, [place] # (Auto) 0.8, Eos # (Auto) 0.1, Baso # (Auto) 0.0 11/26/18 16:05: PT 10.5, INR 1.01, APTT 24.4 11/26/18 16:05: Sodium 141, Potassium 3.6, Chloride 102, Carbon Dioxide 30, Anion Gap 12.6, BUN 25 H, Creatinine 1.14 H, Estimated Creat Clear 37, Estimated GFR 46 L, Est GFR ( Amer) 55 L, Glucose 119 H, Calcium 9.2, Total Bilirubin 0.3, AST 19, ALT 23, Alkaline Phosphatase 65, Total Protein 7.5, Albumin 3.6, Globulin 3.9 H, Albumin/Globulin Ratio 0.9 L 11/27/18 03:25: Urine Color Yellow, Urine Appearance Clear, Urine pH 8.0, Ur Specific [place] 1.010, Urine Protein Negative, Urine Glucose (UA) Negative, Urine Ketones Negative, Urine Blood Negative, Urine Nitrate Negative, Urine Bilirubin Negative, Urine Urobilinogen 0.2, Ur Leukocyte Esterase Negative, Urine RBC 3-5, Urine WBC 3-5, Urine Bacteria Trace I & O for Last 24 hours: Intake & Output 11/24/18 11/25/18 11/26/18 11/27/18 11:59 11:59 11:59 11:59 Intake Total 410 / 410 Balance 410 / 410 Weight 135 lb 1 oz Assessment and Plan (1) Dysphagia Current visit: Yes Status: Acute Category: Medical Code(s): R13.10 - Dysphagia, unspecified (2) Altered mental status Current visit: Yes Status: Acute Category: Medical Code(s): R41.82 - Altered mental status, unspecified (3) Weakness Current visit: Yes Status: Acute Category: Medical Code(s): R53.1 - Weakness (4) Unsteady gait Current visit: Yes Status: Acute Category: Medical Code(s): R26.81 - Unsteadiness on feet (5) Frequent falls Current visit: Yes Status: Acute Category: Medical Code(s): R29.6 - Repeated falls (6) GERD (gastroesophageal reflux disease) Current visit: Yes Status: Acute Category: Medical Code(s): K21.9 - Gastro-esophageal reflux disease without esophagitis (7) Anxiety and depression Current visit: Yes Status: Chronic Category: Medical Code(s): F41.9 - Anxiety disorder, unspecified; F32.9 - Major depressive disorder, single episode, unspecified (8) Benign essential tremor Current visit: Yes Status: Chronic Category: Medical Code(s): G25.0 - Essential tremor (9) Anemia Current visit: Yes Status: Chronic Category: Medical Code(s): D64.9 - Anemia, unspecified (10) Dehydration Current visit: Yes Status: Acute Category: Medical Code(s): E86.0 - Dehydration (11) Urinary frequency Current visit: Yes Status: Acute Category: Medical Code(s): R35.0 - Frequency of micturition (12) Urinary incontinence Current visit: Yes Status: Acute Category: Medical Code(s): R32 - Unspecified urinary incontinence (13) Constipation Current visit: Yes Status: Acute Category: Medical Code(s): K59.00 - Constipation, unspecified (14) Degenerative disc disease, cervical Current visit: No Status: Chronic Category: Medical Code(s): M50.30 - Other cervical disc degeneration, unspecified cervical region - Assessment and plan all Dx Assessment and Plan for all problems:: Patient seen and examined. Preliminary head CT report is negative. Labs OK. UA clear. States she is having trouble eating the mechanical soft diet. C/o phlegm in her throat. PT and OT eval today to assess for skilled rehab.
--- NOTE | 2018-11-28 08:02 | Progress Note ---
<Audra Salter - Last Filed: 11/28/18 07:59> Internal Medicine - PN: Subj *Date: 11/28/18 *Time: 07:59 Interval history: Patient does not like consistency of the food. She chokes on the oatmeal. Would like different choices. Was evaluated by speech therapy and pureed diet recommended. Dietary consult initiated. She also states that she cannot get out of bed without her brace. This needs to be placed anytime she stands. Patient denies leg cramping this a.m. She is actually hungry this morning. Bowels have not moved. We will add milk of magnesia. She states [facility] is coming to see her today. As per speech therapy: [facility] [place] Recommendations Diet Dietary Recommendations Pureed,Thin Liquids Treatment/Strategies Strategy/Precaution Recommend Sitting Upright (90 deg), Liquids from Straw,Small Bites and Sips,Alternate Liquids/ Solids Also recommend GI consult for cause Exam Vital signs and Labs for Last 24 Hours: Temp Pulse Resp BP Pulse Ox 98.6 F 87 17 132/57 L 93 L 11/28/18 07:55 11/28/18 07:55 11/28/18 07:55 11/28/18 07:55 11/28/18 07:55 I & O for Last 24 hours: Intake & Output 11/25/18 11/26/18 11/27/18 11/28/18 11:59 11:59 11:59 11:59 Intake Total 410 / 410 1080 / 1080 Output Total 150 / 150 Balance 410 / 410 930 / 930 Weight 135 lb 1 oz 132 lb 4 oz - Constitutional no acute distress Comments: Sitting in recliner at bedside trying to eat breakfast. Family at side to assist. - *Routine Respiratory Exam Present: CTA bilaterally (Anteriorly and posteriorly) - *Routine Cardiovascular Exam Present: RRR - *Routine Abdominal Exam Present: soft, normoactive bowel sounds. Absent: tenderness, distended - *Routine Extremities Exam Absent: edema, tenderness - *Routine Neurological Exam Present: alert, oriented X3 Assessment and Plan (1) Dysphagia Current visit: Yes Status: Acute Category: Medical Code(s): R13.10 - Dysphagia, unspecified (2) Altered mental status Current visit: Yes Status: Acute Category: Medical Code(s): R41.82 - Altered mental status, unspecified (3) Weakness Current visit: Yes Status: Acute Category: Medical Code(s): R53.1 - Weakness (4) Unsteady gait Current visit: Yes Status: Acute Category: Medical Code(s): R26.81 - Unsteadiness on feet (5) Frequent falls Current visit: Yes Status: Acute Category: Medical Code(s): R29.6 - Repeated falls (6) GERD (gastroesophageal reflux disease) Current visit: Yes Status: Acute Category: Medical Code(s): K21.9 - Gastro-esophageal reflux disease without esophagitis (7) Anxiety and depression Current visit: Yes Status: Chronic Category: Medical Code(s): F41.9 - Anxiety disorder, unspecified; F32.9 - Major depressive disorder, single epis ode, unspecified (8) Benign essential tremor Current visit: Yes Status: Chronic Category: Medical Code(s): G25.0 - Essential tremor (9) Anemia Current visit: Yes Status: Chronic Category: Medical Code(s): D64.9 - Anemia, unspecified (10) Dehydration Current visit: Yes Status: Acute Category: Medical Code(s): E86.0 - Dehydration (11) Urinary frequency Current visit: Yes Status: Acute Category: Medical Code(s): R35.0 - Frequency of micturition (12) Urinary incontinence Current visit: Yes Status: Acute Category: Medical Code(s): R32 - Unspecified urinary incontinence (13) Constipation Current visit: Yes Status: Acute Category: Medical Code(s): K59.00 - Cons tipation, unspecified (14) Degenerative disc disease, cervical Current visit: No Status: Chronic Category: Medical Code(s): M50.30 - Other cervical disc degeneration, unspecified cervical region - Assessment and plan all Dx Assessment and Plan for all problems:: Dietary consult this [facility] to evaluate patient today. Consider GI consult. <Nick Salguero - Last Filed: 11/28/18 08:45> Internal Medicine - PN: Subj *Date: 11/28/18 *Time: 08:42 Exam Vital signs and Labs for Last 24 Hours: Temp Pulse Resp BP Pulse Ox 98.6 F 87 17 132/57 L 93 L 11/28/18 07:55 11/28/18 07:55 11/28/18 07:55 11/28/18 07:55 11/28/18 07:55 I & O for Last 24 hours: Intake & Output 11/25/18 11/26/18 11/27/18 11/28/18 11:59 11:59 11:59 11:59 Intake Total 410 / 410 1080 / 1080 Output Total 150 / 150 Balance 410 / 410 930 / 930 Weight 135 lb 1 oz 132 lb 4 oz Assessment and Plan (1) Dysphagia Current visit: Yes Status: Acute Category: Medical Code(s): R13.10 - Dysphagia, unspecified (2) Altered mental status Current visit: Yes Status: Acute Category: Medical Code(s): R41.82 - Altered mental status, unspecified (3) Weakness Current visit: Yes Status: Acute Category: Medical Code(s): R53.1 - Weakness (4) Unsteady gait Current visit: Yes Status: Acute Category: Medical Code(s): R26.81 - Un steadiness on feet (5) Frequent falls Current visit: Yes Status: Acute Category: Medical Code(s): R29.6 - Repeated falls (6) GERD (gastroesophageal reflux disease) Current visit: Yes Status: Acute Category: Medical Code(s): K21.9 - Gastro-esophageal reflux disease without esophagitis (7) Anxiety and depression Current visit: Yes Status: Chronic Category: Medical Code(s): F41.9 - Anxiety disorder, unspecified; F32.9 - Major depressive disorder, single episode, unspecified (8) Benign essential tremor Current visit: Yes Status: Chronic Category: Medical Code(s): G25.0 - Essential tremor (9) Anemia Current visit: Yes Status: Chronic Category: Medical Code(s): D64.9 - Anemia, unspecified (10) Dehydration Current visit: Yes Status: Acute Category: Medical Code(s): E86.0 - Dehydration (11) Urinary frequency Current visit: Yes Status: Acute Category: Medical Code(s): R35.0 - Frequency of micturition (12) Urinary incontinence Current visit: Yes Status: Acute Category: Medical Code(s): R32 - Unspecified urinary incontinence (13) Constipation Current visit: Yes Status: Acute Category: Medical Code(s): K59.00 - Constipation, unspecified (14) Degenerative disc disease, cervical Current visit: No Status: Chronic Category: Medical Code(s): M50.30 - Other cervical disc degeneration, unspecified cervical region - Assessment and plan all Dx Assessment and Plan for all problems:: Patient seen and examined. Concur with above. She has a [place] nerve stimulator and not a candidate for MRI. She would benefit from acute rehab. To be evaluated by [facility] today.
--- NOTE | 2018-11-28 12:42 | Discharge Summary ---
General - General Admission date:: 11/26/18 Discharge date: 11/28/18 HPI HPI: Ms. Linda is an 83-year-old female with a history of anxiety and depression, migraines, ulcers, degenerative disc disease, osteoarthritis, and hyperlipidemia who presented to the [facility] with weakness and unsteadiness with 2 recent falls, drooling, changes in her voice, and strangling when she eats or drinks.. 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 Patient reports constipation and urinary frequency with incontinence. She states that she has been unable to get out of the chair by herself and she simply cannot care for herself at this time. She denies chest pain, shortness of breath, nausea/vomiting and diarrhea. Family related that she had a change of her mental status; Dr. Salguero assessed her and admitted her to [facility] to evaluate for her a possible stroke. Hospital Course Hospital Course: On admission patient was evaluated for stroke. CT of the head and CTA were negative. She was evaluated by PT, OT, and speech therapy as well. She was started on home medicines. She was noted to choke when she ate but was able to eat better than when at home. Speech therapy made the following recommendations and findings after a modified barium swallow.: MBS Recommendations Diet Dietary Recommendations Pureed,Thin Liquids Treatment/Strategies Strategy/Precaution Recommend Sitting Upright (90 deg), Liquids from Straw,Small Bites and Sips,Alternate Liquids/ Solids Referrals/Other Recommended Referrals GI Consult Other Recommendations Determine cause of esophageal dysphagia. Mod Barium Swallow Impressions Summary and Impressions Oral Phase Impression Moderate Impairment Oral Phase Summary Decreased mastication noted with mechanical soft consistency. Pharyngeal Phase Impression Severe Impairment Pharyngeal Phase Summary Ms. Linda exhibits severe impairment with pharyngeal phase of swallowing. She exhibited with deep penetration with thin liquids via straw and open cup, penetration with nectar and honey via straw and open cup; chin tuck compensatory strategy implimented with no improvement. Ms. Linda had moderate vallecular residue with pudding consistency, could not be cleared with dry swallow, hard swallow, or throat clearing. Ms. Linda was successful with pureed consistency. Mechanical soft consistency resulted in vallecular residue, residue in pyriform sinuses, and esophageal residue. It required regurgitation to clear residue. At this time it is recommended to place Ms. Linda on pureed diet with thin liquids. She is at risk for aspiration on liquid consistency. Speech/Language MBS Assessment/Goals/Plan Assessment Date of Evaluation: 11/27/18 Evaluation Type Re-Evaluation/Revise POC Assessment/Problems Dysphagia Does Patient Qualify for Service Yes Qualify/Failure Comment Patient would benefit from acute care rehabilitation placement for dysphagia Recommendations PHYSICIAN CERTIFICATION: The specified therapy services are required, authorized, and reviewed every 30 days. Pt will be seen # times/week Patient also complained of right leg cramping and had a venous Doppler study completed. This was negative. OT saw the patient daily and she was able to sit up in a chair. She was able to walk as long as she wore her brace on her left lower leg. She had difficulty with eating the pured diet which did cause choking as well. Patient was evaluated by [facility] who accepted her in transfer for ongoing rehab and treatment of her dysphagia. She was thus discharged for transfer on 11/28/2018 in stable and satisfactory condition. Meds as per med list. She will continue with PT, OT, and speech therapy, she will follow-up with physicians at [place]. Diet will be as per recommendation of speech therapy and will need to be. Until that time. Objective Vital signs: Temp Pulse Resp BP Pulse Ox 98.6 F 87 17 132/57 L 93 L 11/28/18 07:55 11/28/18 07:55 11/28/18 07:55 11/28/18 07:55 11/28/18 07:55 Narrative: Exam Vital signs and Labs for Last 24 Hours: Temp Pulse Resp BP Pulse Ox 98.6 F 87 17 132/57 L 93 L 11/28/18 07:55 11/28/18 07:55 11/28/18 07:55 11/28/18 07:55 11/28/18 07:55 I & O for Last 24 hours: Intake & Output 11/25/18 11/26/18 11/27/18 11/28/18 11:59 11:59 11:59 11:59 Intake Total 410 / 410 1080 / 1080 Output Total 150 / 150 Balance 410 / 410 930 / 930 Weight 135 lb 1 oz 132 lb 4 oz - Constitutional no acute distress Comments: Sitting in recliner at bedside trying to eat breakfast. Family at side to assist. - *Routine Respiratory Exam Present: CTA bilaterally (Anteriorly and posteriorly) - *Routine Cardiovascular Exam Present: RRR - *Routine Abdominal Exam Present: soft, normoactive bowel sounds. Absent: tenderness, distended - *Routine Extremities Exam Absent: edema, tenderness - *Routine Neurological Exam Present: alert, oriented X3 Results Completed studies during hospitalization [Text1]: Laboratory Tests 11/26/18 11/26/18 11/27/18 16:05 16:05 03:25 WBC 10.2 RBC 3.99 L Hgb 12.1 L Hct 38.0 MCV 95.3 MCH 30.2 MCHC 31.7 L Plt Count 282 Sodium 141 Potassium 3.6 Chloride 102 Carbon Dioxide 30 Anion Gap 12.6 BUN 25 H Creatinine 1.14 H Estimated GFR 46 L Glucose 119 H Calcium 9.2 Total Bilirubin 0.3 AST 19 ALT 23 Alkaline Phosphatase 65 Total Protein 7.5 Albumin 3.6 Globulin 3.9 H Albumin/Globulin Ratio 0.9 L Urine Color Yellow Urine Appearance Clear Urine pH 8.0 Ur Specific Pyatt 1.010 Urine Protein Negative Urine Glucose (UA) Negative Urine Ketones Negative Urine Blood Negative Urine Nitrate Negative Urine Bilirubin Negative Urine Urobilinogen 0.2 Ur Leukocyte Esterase Negative Urine RBC 3-5 Urine WBC 3-5 Urine Bacteria Trace Labs on day of discharge: 11/2018 CTA of the head IMPRESSION: Negative CT angiogram of the brain, no aneurysm or intracranial stenosis or occlusion apparent 11/26/2018 CT of the head without contrast IMPRESSION: No acute intracranial finding DS: Diagnosis - Discharge Diagnosis (1) Dysphagia Status: Acute (2) Altered mental status Status: Acute (3) Weakness Status: Acute (4) Unsteady gait Status: Acute (5) Frequent falls Status: Acute (6) GERD (gastroesophageal reflux disease) Status: Acute (7) Anxiety and depression Status: Chronic (8) Benign essential tremor Status: Chronic (9) Anemia Status: Chronic (10) Dehydration Status: Acute (11) Urinary frequency Status: Acute (12) Urinary incontinence Status: Acute (13) Constipation Status: Acute (14) Degenerative disc disease, cervical Status: Chronic Discharge Plan - Patient Discharge Instructions Patient Instructions: Ischemic Stroke - Follow up Plan Home Medications: Home Medications Medication Instructions Recorded Confirmed Type aspirin 81 mg tablet,delayed 81 mg PO DAILY tab 09/06/17 11/27/18 History release cholecalciferol (vitamin D3) 1,000 1,000 unit PO DAILY cap 09/06/17 11/27/18 History unit capsule hydrocodone 10 mg-acetaminophen 1.5 tab PO DAILY tab 09/06/17 11/26/18 History 325 mg tablet pravastatin 20 mg tablet 20 mg PO HS 09/06/17 11/27/18 History tizanidine 4 mg capsule 4 mg PO HS cap 09/06/17 11/27/18 History trazodone 50 mg tablet 100 mg PO HSP PRN #90 tab 09/03/18 11/27/18 History Ferrous Sulfate [Ferrous Sulfate 325 mg PO DAILY 11/26/18 11/27/18 History 325mg Tablet] Nitrofurantoin Monohyd/M-Cryst 100 mg PO BID 11/26/18 11/27/18 History [Nitrofurantoin Kleberg-Mcr 100 mg] Prescriptions/Medication Reconciliation: No Action cholecalciferol (vitamin D3) 1,000 unit capsule 1,000 unit PO DAILY cap hydrocodone 10 mg-acetaminophen 325 mg tablet 1.5 tab PO DAILY tab diazepam 10 mg tablet 10 mg PO DAILY aspirin 81 mg tablet,delayed release 81 mg PO DAILY tab pravastatin 20 mg tablet 20 mg PO HS trazodone 50 mg tablet 100 mg PO HSP PRN #90 tab PRN Reason: insom[place] tizanidine 4 mg capsule 4 mg PO HS cap Ferrous Sulfate [Ferrous Sulfate 325mg Tablet] 325 mg PO DAILY Docusate Sodium [Colace] 100 mg PO BID Nitrofurantoin Monohyd/M-Cryst [Nitrofurantoin Kleberg-Mcr 100 mg] 100 mg PO BID Perphenazine 4 mg PO TID - Problem Reconciliation Problems Reviewed?: Yes
--- NOTE | 2018-11-28 19:57 | Cardiology Report ---
APPROVED REPORT Right Lower Extremity Venous Study for DVT. Editing Intern: TENA Indications Lower Extremity Pain: Right pain in leg Vein Imaging CFV (R): compressive, spontaneous, phasic, augmentation FEM (R): compressive, spontaneous, phasic, augmentation POP (R): compressive, spontaneous, phasic, augmentation PTV (R): Compressible GSV (R): Compressible Peroneals (R):Compressible GAS (R): Compressible Conclusion No evidence of DVT Electronically signed by : Aleksandr Ocasio MD 11/28/2018 19:56:55
== END 2018-11-28 14:25 ==
LOC: 2ND
PROVIDERS: ADMIT Family Medicine; ATTEND Family Medicine
CPT/HCPCS: 70371; 70450; 70496; 80053; 81001; 85025; 85610; 85730; 92507; 92610; 92611; 93971; 97116; 97161; 97166; 97532; 97535; G0378; Q9967

== ENCOUNTER 2019-01-17 20:13 | Inpatient (IN) ==
[2019-01-17 20:38] LABS: Basophils # 0.1 K/mm3 (0-0.2); Basophils % 0.5 % (0.1-2.0); Eosinophils # 0.4 K/mm3 (0.0-0.4); Eosinophils % 3.4 % (0.1-12.0); Hematocrit 36.4 % (37.0-47.0); Hemoglobin 11.8 g/dL (12.2-16.2); Lymphocytes # 2.8 K/mm3 (0.7-4.5); Lymphocytes % 27.6 % (10-50); Mean Corpuscular HGB Conc 32.4 g/dL (31.8-35.4); Mean Corpuscular Volume 93.8 fl (81-99); Mean Platelet Volume 7.8 fl (7.4-10.4); Monocytes # 0.8 K/mm3 (0.1-1.0); Monocytes % 7.3 % (1.7-9.3); Neutrophils # 6.3 K/mm3 (1.8-7.8); Neutrophils % 61.2 % (37.0-80.0); Platelet Count 331 K/mm3 (142-424); Red Blood Count 3.88 M/mm3 (4.20-5.40); Red Cell Distribution Width 13.9 % (11.5-17.5); White Blood Count 10.3 K/mm3 (4.8-10.8)
[2019-01-17 20:43] LABS: Microscopic, Urine URINE MICROSCOPIC (MICROSCOPIC)
[2019-01-17 20:47] LABS: Albumin Level 2.6 gm/dL (3.4-5.0); Albumin/Globulin Ratio 0.7 (1.1-1.8); Anion Gap 8.7 mEq/L (5-15); Bilirubin,Total 0.5 mg/dL (0.2-1.0); Calcium 9.5 mg/dL (8.5-10.1); Total Protein,Serum 6.6 gm/dL (6.4-8.2)
[2019-01-17 20:47] LABS: Appearance,Urine CLEAR (Clear); Bilirubin,Urine Negative (Negative); Blood, Urine Negative (Negative); Color,Urine YELLOW (Yellow); Glucose,Urine (UA) Negative (Negative); Ketones,Urine Negative (Negative); Leukocyte Esterase,Urine Negative (Negative); Protein,Urine Negative (Negative); Specific Gravity, Urine 1.015 (1.005-1.030); Urobilinogen,Urine 0.2 EU/dl (0.2)
[2019-01-17 20:54] LABS: Amphetamine/Metha Screen,Urine Negative ng/mL (<1000); Barbiturates Screen,Urine Negative ng/mL (<200); Benzodiazepines Screen,Urine Positive ng/mL (<200); Cannabinoid Screen,Urine Negative ng/mL (<50); Cocaine Screen,Urine Negative ng/mL (<300); Methadone Screen,Urine Negative ng/mL (<300); Opiate Screen,Urine Positive ng/mL (<300); Phencyclidine Screen,Urine Negative ng/mL (<25)
--- NOTE | 2019-01-17 20:56 | Emergency Department Note ---
ED Disposition Clinical Impression: Altered mental status Qualifiers: Altered mental status type: unspecified Qualified Code(s): R41.82 - Altered mental status, unspecified Disposition: Admitted as Observation Condition on Discharge: Good - Critical Care Critical Care Time: No Attestation: On 01/17/19, the high probability of a clinically significant, sudden or life threatening deterioration of the following system(s) required my full and direct attention, intervention and personal management. The time I documented below is in addition to time spent performing reported procedures but includes the following listed in this critical care notation. Medical Decision Making - Medical Records Medical records reviewed: Yes: I reviewed the patient's medical records. - Wilver Inquiry Pt receiving controlled substance: No Vital Signs: 01/17/19 20:19 01/17/19 20:43 01/17/19 21:32 Temperature 98.8 F 97.7 F Temperature Source Oral Rectal Pulse Rate [Left Radial] 59 L 69 Respiratory Rate 14 14 Blood Pressure [Right Arm] 125/55 L 140/71 Blood Pressure Mean [Right Arm] 78 94 Blood Pressure Source [Right Arm] Automatic Cuff Automatic Cuff Blood Pressure Position [Right Arm] Supine Supine 02 Sat by Pulse Oximetry 94 L 95 Oxygen Delivery Method Room Air Room Air - Lab Data Lab results reviewed: Yes: I reviewed the patient's lab results. Lab Results 01/17/19 20:25: WBC 10.3, RBC 3.88 L, Hgb 11.8 L, Hct 36.4 L, MCV 93.8, MCH 30.4, MCHC 32.4, RDW 13.9, Plt Count 331, MPV 7.8, Neut % (Auto) 61.2, Lymph % (Auto) 27.6, Ector % (Auto) 7.3, Eos % (Auto) 3.4, Baso % (Auto) 0.5, Neut # (Auto) 6.3, Lymph # (Auto) 2.8, Ector # (Auto) 0.8, Eos # (Auto) 0.4, Baso # (Auto) 0.1, ESR 104 H 01/17/19 20:25: Sodium 139, Potassium 3.7, Chloride 104, Carbon Dioxide 30, Anion Gap 8.7, BUN 16, Creatinine 1.02, Estimated Creat Clear 42, Estimated GFR 52 L, Est GFR ( Amer) 63, Glucose 97, Calcium 9.5, Total Bilirubin 0.5, AST 21, ALT 73, Alkaline Phosphatase 113, C-Reactive Protein 2.0 H, Total P rotein 6.6, Albumin 2.6 L, Globulin 4.0 H, Albumin/Globulin Ratio 0.7 L 01/17/19 20:25: Troponin I < 0.02 01/17/19 20:30: Urine Color Yellow, Urine Appearance Clear, Urine pH 7.0, Ur Specific [place] 1.015, Urine Protein Negative, Urine Glucose (UA) Negative, Urine Ketones Negative, Urine Blood Negative, Urine Nitrate Negative, Urine Bilirubin Negative, Urine Urobilinogen 0.2, Ur Leukocyte Esterase Negative, Urine WBC Occasional, Ur Squamous Epith Cells Occasional, Urine Bacteria Trace, Hyaline Casts Occasional 01/17/19 20:30: Urine Opiates Screen Positive H, Urine Methadone Screen Negative, Ur Barbituates Screen Negative, Ur Phencyclidine Scrn Negative, Ur Amphetamines Screen Negative, U Benzodiazepines Scrn Positive H, Urine Cocaine Screen Negative, U Marijuana (THC) Screen Negative Result diagrams: 01/17/19 20:25 01/17/19 20:25 Orders (Tests/Meds): ORDERS Category Date Time Status CT head/brain wo con Stat Cat Scan 01/17/19 20:33 Taken XR chest AP Stat Exams 01/17/19 20:33 Taken - Radiology Data #1 Image(s): Chest Image Reviewed: Yes I reviewed the patient's radiology image Preliminary Findings: Normal/NAD - CT Data CT Scan: Head Time Received: 23:[address] Reviewed: Yes: I have viewed the radiologist's interpretation Preliminary Findings: Normal/NAD - ECG Data Tracing #1 Normal Sinus Rhythm: Yes Ischemic changes: non-specific ST-T wave changes - Physician Consults Physician Consulted: anders Reason -: Admission Altered Mental Status HPI - General Chief Complaint: Altered Mental Status Stated Complaint: hypotension Time Seen by Provider: 01/17/19 20:25 Mode of Arrival: EMS Source of Information: Patient, Relative, EMS, Medical Record Limitations: Physical Limitations Description of Symptoms (Recalled from ER Triage Doc. by RN): per ems at [facility] staff noticed a decrease on LOC in patient. per staff per is alert and "more talkative" pt was lethargic and hard to arouse. per staff pt had just recieved pain medication and had a low BP when vitals were assessed at intermediate. pt was given narcan nasally in route via EMS. - History of Present Illness HPI narrative: pt with altered mental status and sent to ed for eval - no fever - no trauma MD complaint: altered mental status Onset (ago): hour(s) Timing confirmed by: caregiver Severity: moderate Consistency of symptoms: constant Associated symptoms: denies other symptoms - Related Data Home Medications Medication Instructions Recorded Confirmed aspirin 81 mg tablet,delayed 81 mg PO DAILY tab 09/06/17 11/27/18 release cholecalciferol (vitamin D3) 1,000 1,000 unit PO DAILY cap 09/06/17 11/27/18 unit capsule hydrocodone 10 mg-acetaminophen 1.5 tab PO DAILY tab 09/06/17 11/26/18 325 mg tablet pravastatin 20 mg tablet 20 mg PO HS 09/06/17 11/27/18 tizanidine 4 mg capsule 4 mg PO HS cap 09/06/17 11/27/18 trazodone 50 mg tablet 100 mg PO HSP PRN #90 tab 09/03/18 11/27/18 Ferrous Sulfate [Ferrous Sulfate 325 mg PO DAILY 11/26/18 11/27/18 325mg Tablet] Nitrofurantoin Monohyd/M-Cryst 100 mg PO BID 11/26/18 11/27/18 [Nitrofurantoin Ector-Mcr 100 mg] Acetaminophen 325 mg PO Q6HP PRN 01/17/19 01/17/19 Amlodipine 5mg tab 5 mg PO BID 01/17/19 01/17/19 Ascorbic Acid 500 mg PO DAILY 01/17/19 01/17/19 Docusate Sodium 100mg Cap 100 mg PO BID 01/17/19 01/17/19 Famotidine [Pepcid] 20 mg PO DAILY 01/17/19 01/17/19 Guaifenesin ER 17 gr PO BID 01/17/19 01/17/19 Lidocaine HCl 3 % TOPICAL DAILY 01/17/19 01/17/19 Menthol/Zinc Oxide [Menthol-Zinc 113 gm TP BID 01/17/19 01/17/19 Oxide 0.45%-20%] Metformin HCl [Glucophage 500mg 500 mg PO BID 01/17/19 01/17/19 Tablet] Mirtazapine [Remeron] 15 mg PO HS 01/17/19 01/17/19 Ondansetron HCl [Ondansetron 4mg 4 mg PO Q8HP PRN 01/17/19 01/17/19 Tablet] Polyethylene Glycol 3350 17 gr PO DAILY 01/17/19 01/17/19 Rosuvastatin 20 mg PO HS 01/17/19 01/17/19 Tuberculin [Aplisol (PPD) 5 0.1 unit ID ONCE 01/17/19 01/17/19 units/0.1mL 1mL vial] Tuberculin [Aplisol (PPD) 5 5 tub ID ONCE 01/17/19 01/17/19 units/0.1mL 1mL vial] diazePAM 5mg Tablet 5 mg PO BID MDD 1 TABLET 01/17/19 diazePAM [Valium] 5 mg PO BID 01/17/19 01/17/19 Allergies Allergy/AdvReac Type Severity Reaction Status Date / Time buspirone [From BuSpar] Allergy Mild Dizziness Verified 11/26/18 16:38 citalopram [From Celexa] Allergy Mild Blurry Verified 11/26/18 16:38 Vision primidone Allergy Mild Dizziness Verified 11/26/18 16:38 carbamazepine Allergy Unknown N/V, HIGH Verified 09/03/18 09:42 TEMP cefaclor [From CECLOR] Allergy Unknown I-HIVES Verified 09/03/18 09:42 celecoxib [From CELEBREX] Allergy Unknown UNKNOWN Verified 09/03/18 09:42 codeine Allergy Unknown NA-NAUSEA/V Verified 09/03/18 09:42 OMITING levofloxacin Allergy Unknown LEGS Verified 09/03/18 09:42 JERKING sulfamethoxazole Allergy Unknown THRUSH Verified 09/03/18 09:42 [From BACTRIM] trimethoprim [From BACTRIM] Allergy Unknown THRUSH Verified 09/03/18 09:42 olanzapine [From Zyprexa] AdvReac Mild Verified 11/26/18 16:38 [facility] History - Hepatitis A Screen Drug use history?: No High risk sexual behaviors?: No History of sexually transmitted infection?: No Currently employed?: No Childcare worker?: No Do you have indoor plumbing?: Yes Do you have electricity?: Yes Attestation statement:: This patient has been screened for Hepatitis A risk factors. I have reviewed the patient's past medical history: Yes Medical History: Reports:: Anxiety, Cancer, Depression, Gastroesophageal Reflux Disease(GERD), Hyperlipidemia, Ulcer Denies:: Diabetes Mellitus Type 1, Diabetes Mellitus Type 2 Other Medical History: Reports: Arthritis, Cataracts Comment: KALIE Laterality Cases: Left: Other, Bilateral: Carpal Tunnel Release Other Surgeries: Yes: Cholecystectomy, Hysterectomy-Total, Hysterectomy-Partial, Skin Cancer Excision, Other Amputation: No Fractures: No Comment: back,bowel obstruction - Social History Smoking Status: Never smoker Alcohol Intake: never Substance Use Type: denies use Occupational Status: retired Housing: house Household Members: none - Psychiatric History Pschychiatric History:: Reports:: Anxiety, Depression Family Hx:: Cancer, Coronary Artery Disease ROS Obtained: Yes All systems reviewed & no additional complaints - Constitutional Constitutional: Denies fever(s) - Eyes Eyes: Denies change in vision - ENT Ears, Nose, Mouth, and Throat: Denies sore throat - Cardiovascular Cardiovascular: Denies chest pain - Respiratory Respiratory: No cough - Gastrointestinal Gastrointestingal: Denies: diarrhea - Genitourinary Female Genitourinary: Denies hematuria - Musculoskeletal Musculoskeletal: Denies joint pain - Integumentary/Breasts Skin/Breast: Denies rash - Neurologic Neurologic: Reports as per HPI, Denies convulsions, Denies focal weakness Physical Exam - General General appearance: alert - Head Head exam: normocephalic - Eye Eye exam: Present: PERRL, EOMI - ENT ENT exam: Present: mucous membranes dry - Neck Neck exam: Present: trachea midline - Respiratory Respiratory exam: Present: other (dec bs bilat ). Absent: respiratory distress - Cardiovascular Cardiovascular exam: Present: regular rate, systolic murmur, +S4 - Abdominal Exam Abdominal exam: Present: soft. Absent: tenderness - Extremities Exam Extremities exam: Absent: tenderness - Neurological Exam Neurological exam: Present: alert, CN II-XII intact. Absent: motor sensory deficit - Skin Skin exam: Absent: rash
[2019-01-17 21:02] LABS: WBC,Urine Occasional #/hpf (0-3)
[2019-01-17 21:03] LABS: Bacteria,Urine Trace /lpf; Hyaline Casts,Urine Occasional #/lpf (0); Squamous Epithelial Cell,Urine Occasional #/hpf (0-5)
[2019-01-17 21:22] LABS: Erythrocyte Sedimentation Rate 104 mm/hr (0-30)
[2019-01-18 06:03] LABS: Basophils % 0.3 % (0.1-2.0); Eosinophils # 0.4 K/mm3 (0.0-0.4); Eosinophils % 4.4 % (0.1-12.0); Hematocrit 36.2 % (37.0-47.0); Hemoglobin 11.6 g/dL (12.2-16.2); Lymphocytes # 2.5 K/mm3 (0.7-4.5); Lymphocytes % 32.6 % (10-50); Mean Corpuscular HGB Conc 32.1 g/dL (31.8-35.4); Mean Corpuscular Volume 94.9 fl (81-99); Mean Platelet Volume 7.5 fl (7.4-10.4); Monocytes # 0.6 K/mm3 (0.1-1.0); Monocytes % 7.8 % (1.7-9.3); Neutrophils # 4.3 K/mm3 (1.8-7.8); Neutrophils % 54.9 % (37.0-80.0); Platelet Count 313 K/mm3 (142-424); Red Blood Count 3.81 M/mm3 (4.20-5.40); Red Cell Distribution Width 13.9 % (11.5-17.5); White Blood Count 7.8 K/mm3 (4.8-10.8)
[2019-01-18 06:12] LABS: Anion Gap 9.3 mEq/L (5-15)
--- NOTE | 2019-01-18 07:24 | Pharmacy Consult Notes ---
[facility] Pharmacy VTE Monitoring - Patient Demographics Admission date: 01/18/19 Report Date: 01/18/19 Time: 07:23 Allergies/Adverse Reactions: Patient Allergies buspirone [From BuSpar] Allergy (Mild, Verified 11/26/18 16:38) Dizziness citalopram [From Celexa] Allergy (Mild, Verified 11/26/18 16:38) Blurry Vision primidone Allergy (Mild, Verified 11/26/18 16:38) Dizziness carbamazepine Allergy (Unknown, Verified 09/03/18 09:42) N/V, HIGH TEMP cefaclor [From CECLOR] Allergy (Unknown, Verified 09/03/18 09:42) I-HIVES celecoxib [From CELEBREX] Allergy (Unknown, Verified 09/03/18 09:42) UNKNOWN codeine Allergy (Unknown, Verified 09/03/18 09:42) NA-NAUSEA/VOMITING levofloxacin Allergy (Unknown, Verified 09/03/18 09:42) LEGS JERKING sulfamethoxazole [From BACTRIM] Allergy (Unknown, Verified 09/03/18 09:42) THRUSH trimethoprim [From BACTRIM] Allergy (Unknown, Verified 09/03/18 09:42) THRUSH olanzapine [From Zyprexa] Adverse Reaction (Mild, Verified 11/26/18 16:38) Height: 1.68 m Weight: 57.663 kg Patient Problems: Current Active Problems Altered mental status (Acute) - VTE Risk Labs: VTE Related Lab Results Hgb 11.6 g/dL (12.2-16.2) L 01/18/19 05:24 Hct 36.2 % (37.0-47.0) L 01/18/19 05:24 Plt Count 313 K/mm3 (142-424) 01/18/19 05:24 BUN 13 mg/dL (7-18) 01/18/19 05:24 Creatinine 0.81 mg/dL (0.55-1.02) D 01/18/19 05:24 Estimated Creat Clear 40 mL/min (50-200) 01/18/19 05:24 Was VTE Risk Assessment Performed: Yes VTE Score: 7 VTE Risk Level: Moderate Risk Clinical Trial Participant: No - Prophylaxis VTE Prophylaxis Ordered?: Yes Types of VTE Prophylaxis: TEDS Knee High
--- NOTE | 2019-01-18 08:15 | Electrocardiograph Report ---
APPROVED REPORT Exam: Resting ECG HR:64 bpm ECG Measurements Heart Rate 64 AXES HI 180 P 46 QRSd 120 QRS -31 QT 442 T9 QTc 455 <Conclusion> Normal sinus rhythm Left axis deviation Right bundle branch block Abnormal ECG Electronically signed by : Tim Roberts, 01/18/2019 08:14:58
--- NOTE | 2019-01-18 08:31 | History & Physical Report ---
*Admission Date: 01/18/19 <Pia Ellison 01/18/19 08:46> *Chief complaint: AMS, hypotension <Pia Ellison 01/18/19 08:46> *History of present illness: Ms. Linda is an 83-year-old female who was recently discharged from [facility] after suffering a stroke. She went to [facility] for rehabilitation and was doing well while at [facility]. She was then transferred to [place] where her family members state she has steadily declined. According to family members, 3 to 4 days ago she could carry on a normal conversation. Per the ER note, at approximately 1830 last night, the [facility] staff noticed a decrease in level of consciousness and the patient became lethargic and was hard to arouse. She had just received pain medication and her blood pressure dropped when vitals were assessed. She was given Narcan nasally in route via EMS. Head CT showed nothing acute in the emergency room. She was admitted with a diagnosis of altered mental status. This a.m., the patient's speech is very garbled. She seems to have some weakness on the left side. Her family states this is a big change from 3 to 4 days ago. <Pia Ellison 01/18/19 08:46> [facility] History I have reviewed the patient's past medical history: Yes <Pia Ellison 01/18/19 08:46> Medical History: Reports:: Anxiety, Cancer, Cerebrovascular Accident, Depression, Diabetes Mellitus Type 2, Gastroesophageal Reflux Disease(GERD), Hyperlipidemia, Migraine, Ulcer Denies:: Diabetes Mellitus Type 1 <Pia Ellison 01/18/19 08:46> *Have you ever received a pneumonia vaccine?: Yes <Pia Ellison 01/18/19 08:46> *Have you received a flu vaccine this season?: Yes <Pia Ellison 01/18/19 08:46> Other Medical History: Reports: Arthritis, Cataracts <Pia Ellison 01/18/19 08:46> Laterality Cases: Left: Other, Right: Total Knee Replacement, Bilateral: Carpal Tunnel Release <Pia Ellison 01/18/19 08:46> Other Surgeries: Yes: Cancer Surgery (skin), Cholecystectomy, Hysterectomy- Total, Hysterectomy-Partial, Skin Cancer Excision, Other (left ankle, back surgery, Bowel obstruction) <Pia Ellison 01/18/19 08:46> Amputation: No <Pia Ellison 01/18/19 08:46> Fractures: No <Pia Ellison 01/18/19 08:46> - *Social History Educational Level: Completed High School <Pia Ellison 01/18/19 08:46> Smoking Status: Never smoker <Pia Ellison 01/18/19 08:46> Alcohol Intake: never <Pia Ellison 01/18/19 08:46> Substance Use Type: denies use <Pia Ellison 01/18/19 08:46> *Occupational Status:: retired <Pia Ellison 01/18/19 08:46> Housing: house <Pia Ellison 01/18/19 08:46> Household Members: none <Pia Ellison 01/18/19 08:46> *Travel in the last 8 weeks: None <Pia Ellison 01/18/19 08:46> - Psychiatric History Pschychiatric History:: Reports:: Anxiety, Depression <Pia Ellison 01/18/19 08:46> Family Hx:: Cancer, Coronary Artery Disease <Pia Ellison 01/18/19 08:46> Review of Systems - Constitutional Reports weakness, Denies chills, Denies fever(s) <Pia Ellison 01/18/19 08:46> - ENT Denies nasal congestion, Denies sore throat <Pia Ellison 01/18/19 08:46> - *Cardiovascular Denies chest pain, Denies shortness of breath <Pia Ellison 01/18/19 08:46> - *Respiratory Denies cough, Denies shortness of breath <Pia Ellison 01/18/19 08:46> - *Gastrointestinal Denies abdominal pain, Denies loose stools, Denies nausea, Denies vomiting <Pia Ellison 01/18/19 08:46> - *Genitourinary Denies difficulty urinating, Denies painful urination <Pia Ellison 01/18/19 08:46> - *Musculoskeletal Denies joint pain <Pia Ellison - 01/18/19 08:46> - *Neurologic Reports weakness, Denies seizure-like activity <Pia Ellison - 01/18/19 08:46> Meds Home Medications Medication Instructions Recorded Confirmed Type aspirin 81 mg tablet,delayed 81 mg PO DAILY tab 09/06/17 01/18/19 History release cholecalciferol (vitamin D3) 1,000 1,000 unit PO DAILY cap 09/06/17 01/18/19 History unit capsule hydrocodone 10 mg-acetaminophen 1 tab PO BIDP PRN tab 09/06/17 01/18/19 History 325 mg tablet tizanidine 4 mg capsule 4 mg PO HS cap 09/06/17 01/18/19 History trazodone 50 mg tablet 100 mg PO HS #90 tab 09/03/18 01/18/19 History Ferrous Sulfate [Ferrous Sulfate 325 mg PO DAILY 11/26/18 01/18/19 History 325mg Tablet] Acetaminophen 325 mg PO Q6HP PRN 01/17/19 01/17/19 History Amlodipine 5mg tab 5 mg PO BID 01/17/19 01/17/19 History Ascorbic Acid 500 mg PO DAILY 01/17/19 01/17/19 History Docusate Sodium 100mg Cap 100 mg PO BID 01/17/19 01/17/19 History Famotidine [Pepcid] 20 mg PO DAILY 01/17/19 01/17/19 History Lidocaine HCl 1 applicatio TOPICAL DAILY 01/17/19 01/18/19 History Menthol/Zinc Oxide [Menthol-Zinc 1 applicatio TP BID 01/17/19 01/18/19 History Oxide 0.45%-20%] Metformin HCl [Glucophage 500mg 500 mg PO BID 01/17/19 01/17/19 History Tablet] Mirtazapine [Remeron] 15 mg PO HS 01/17/19 01/17/19 History Ondansetron HCl [Ondansetron 4mg 4 mg PO Q8HP PRN 01/17/19 01/17/19 History Tablet] Polyethylene Glycol 3350 17 gr PO DAILY 01/17/19 01/17/19 History Rosuvastatin 20 mg PO HS 01/17/19 01/17/19 History diazePAM [Valium] 5 mg PO BID 01/17/19 01/17/19 History guaiFENesin [Mucinex 600mg tablet] 600 mg PO BID 01/18/19 01/18/19 History <Nick Salguero - 01/18/19 12:43> Allergies Allergy/AdvReac Type Severity Reaction Status Date / Time buspirone [From BuSpar] Allergy Mild Dizziness Verified 11/26/18 16:38 citalopram [From Celexa] Allergy Mild Blurry Verified 11/26/18 16:38 Vision primidone Allergy Mild Dizziness Verified 11/26/18 16:38 carbamazepine Allergy Unknown N/V, HIGH Verified 09/03/18 09:42 TEMP cefaclor [From CECLOR] Allergy Unknown I-HIVES Verified 09/03/18 09:42 celecoxib [From CELEBREX] Allergy Unknown UNKNOWN Verified 09/03/18 09:42 codeine Allergy Unknown NA-NAUSEA/V Verified 09/03/18 09:42 OMITING levofloxacin Allergy Unknown LEGS Verified 09/03/18 09:42 JERKING sulfamethoxazole Allergy Unknown THRUSH Verified 09/03/18 09:42 [From BACTRIM] trimethoprim [From BACTRIM] Allergy Unknown THRUSH Verified 09/03/18 09:42 olanzapine [From Zyprexa] AdvReac Mild Verified 11/26/18 16:38 <Nick Salguero - 01/18/19 12:43> Exam Vital signs and Labs for Last 24 Hours: Temp Pulse Resp BP Pulse Ox 98.2 F 86 18 151/74 H 94 L 01/18/19 11:33 01/18/19 11:33 01/18/19 11:33 01/18/19 11:33 01/18/19 11:33 Laboratory Results - last 24 hr 01/17/19 20:25: WBC 10.3, RBC 3.88 L, Hgb 11.8 L, Hct 36.4 L, MCV 93.8, MCH 30.4, MCHC 32.4, RDW 13.9, Plt Count 331, MPV 7.8, Neut % (Auto) 61.2, Lymph % (Auto) 27.6, [place] % (Auto) 7.3, Eos % (Auto) 3.4, Baso % (Auto) 0.5, Neut # (Auto) 6.3, Lymph # (Auto) 2.8, [place] # (Auto) 0.8, Eos # (Auto) 0.4, Baso # (Auto) 0.1, ESR 104 H 01/17/19 20:25: Sodium 139, Potassium 3.7, Chloride 104, Carbon Dioxide 30, Anion Gap 8.7, BUN 16, Creatinine 1.02, Estimated Creat Clear 42, Estimated GFR 52 L, Est GFR ( Amer) 63, Glucose 97, Calcium 9.5, Total Bilirubin 0.5, AST 21, ALT 73, Alkaline Phosphatase 113, C-Reactive Protein 2.0 H, Total Protein 6.6, Albumin 2.6 L, Globulin 4.0 H, Albumin/Globulin Ratio 0.7 L 01/17/19 20:25: Troponin I < 0.02 01/17/19 20:30: Urine Color Yellow, Urine Appearance Clear, Urine pH 7.0, Ur Specific [place] 1.015, Urine Protein Negative, Urine Glucose (UA) Negative, Urine Ketones Negative, Urine Blood Negative, Urine Nitrate Negative, Urine Bilirubin Negative, Urine Urobilinogen 0.2, Ur Leukocyte Esterase Negative, Urine WBC Occasional, Ur Squamous Epith Cells Occasional, Urine Bacteria Trace, Hyaline Casts Occasional 01/17/19 20:30: Urine Opiates Screen Positive H, Urine Methadone Screen Negative, Ur Barbituates Screen Negative, Ur Phencyclidine Scrn Negative, Ur Amphetamines Screen Negative, U Benzodiazepines Scrn Positive H, Urine Cocaine Screen Negative, U Marijuana (THC) Screen Negative 01/18/19 02:15: Troponin I < 0.02 01/18/19 05:24: Troponin I < 0.02 01/18/19 05:24: WBC 7.8, RBC 3.81 L, Hgb 11.6 L, Hct 36.2 L, MCV 94.9, MCH 30.4, MCHC 32.1, RDW 13.9, Plt Count 313, MPV 7.5, Neut % (Auto) 54.9, Lymph % (Auto) 32.6, [place] % (Auto) 7.8, Eos % (Auto) 4.4, Baso % (Auto) 0.3, Neut # (Auto) 4.3, Lymph # (Auto) 2.5, [place] # (Auto) 0.6, Eos # (Auto) 0.4, Baso # (Auto) 0.0 01/18/19 05:24: Sodium 141, Potassium 3.3 L, Chloride 106, Carbon Dioxide 29, Anion Gap 9.3, BUN 13, Creatinine 0.81 D, Estimated Creat Clear 40, Estimated GFR 68, Est GFR ( Amer) 82 D, Glucose 84, Calcium 9.0 <Nick Salguero - 01/18/19 12:43> Temp Pulse Resp BP Pulse Ox 97.7 F 79 17 156/76 H 95 01/18/19 08:00 01/18/19 08:00 01/18/19 08:00 01/18/19 08:00 01/18/19 08:00 Laboratory Results - last 24 hr 01/17/19 20:25: WBC 10.3, RBC 3.88 L, Hgb 11.8 L, Hct 36.4 L, MCV 93.8, MCH 30.4, MCHC 32.4, RDW 13.9, Plt Count 331, MPV 7.8, Neut % (Auto) 61.2, Lymph % (Auto) 27.6, [place] % (Auto) 7.3, Eos % (Auto) 3.4, Baso % (Auto) 0.5, Neut # (Auto) 6.3, Lymph # (Auto) 2.8, [place] # (Auto) 0.8, Eos # (Auto) 0.4, Baso # (Auto) 0.1, ESR 104 H 01/17/19 20:25: Sodium 139, Potassium 3.7, Chloride 104, Carbon Dioxide 30, Anion Gap 8.7, BUN 16, Creatinine 1.02, Estimated Creat Clear 42, Estimated GFR 52 L, Est GFR ( Amer) 63, Glucose 97, Calcium 9.5, Total Bilirubin 0.5, AST 21, ALT 73, Alkaline Phosphatase 113, C-Reactive Protein 2.0 H, Total Protein 6.6, Albumin 2.6 L, Globulin 4.0 H, Albumin/Globulin Ratio 0.7 L 01/17/19 20:25: Troponin I < 0.02 01/17/19 20:30: Urine Color Yellow, Urine Appearance Clear, Urine pH 7.0, Ur Specific [place] 1.015, Urine Protein Negative, Urine Glucose (UA) Negative, Urine Ketones Negative, Urine Blood Negative, Urine Nitrate Negative, Urine Bilirubin Negative, Urine Urobilinogen 0.2, Ur Leukocyte Esterase Negative, Urine WBC Occasional, Ur Squamous Epith Cells Occasional, Urine Bacteria Trace, Hyaline Casts Occasional 01/17/19 20:30: Urine Opiates Screen Positive H, Urine Methadone Screen Negative, Ur Barbituates Screen Negative, Ur Phencyclidine Scrn Negative, Ur Amphetamines Screen Negative, U Benzodiazepines Scrn Positive H, Urine Cocaine Screen Negative, U Marijuana (THC) Screen Negative 01/18/19 02:15: Troponin I < 0.02 01/18/19 05:24: Troponin I < 0.02 01/18/19 05:24: WBC 7.8, RBC 3.81 L, Hgb 11.6 L, Hct 36.2 L, MCV 94.9, MCH 30.4, MCHC 32.1, RDW 13.9, Plt Count 313, MPV 7.5, Neut % (Auto) 54.9, Lymph % (Auto) 32.6, [place] % (Auto) 7.8, Eos % (Auto) 4.4, Baso % (Auto) 0.3, Neut # (Auto) 4.3, Lymph # (Auto) 2.5, [place] # (Auto) 0.6, Eos # (Auto) 0.4, Baso # (Auto) 0.0 01/18/19 05:24: Sodium 141, Potassium 3.3 L, Chloride 106, Carbon Dioxide 29, Anion Gap 9.3, BUN 13, Creatinine 0.81 D, Estimated Creat Clear 40, Estimated GFR 68, Est GFR ( Amer) 82 D, Glucose 84, Calcium 9.0 <Pia Ellison - 01/18/19 08:46> I & O for Last 24 hours: Intake & Output 01/16/19 01/17/19 01/18/19 01/19/19 11:59 11:59 11:59 11:59 Intake Total 763 / 763 Output Total 500 / 500 Balance 263 / 263 Weight 127 lb 2.002 oz <Nick Salguero - 01/18/19 12:43> Intake & Output 01/15/19 01/16/19 01/17/19 01/18/19 11:59 11:59 11:59 11:59 Intake Total 763 / 763 Output Total 500 / 500 Balance 263 / 263 Weight 127 lb 2 oz <Pia Ellison 01/18/19 08:46> - Constitutional Comments: Patient can answer yes and no to questioning but her speech is garbled <Pia Ellison 01/18/19 08:46> - *Routine HEENT Exam Head: Present: normocephalic <Pia Ellison 01/18/19 08:46> Eye: Present: EOMI, PERRL <Pia Ellison 01/18/19 08:46> ENT: Present: mucous membranes dry <Pia Ellison 01/18/19 08:46> - *Routine Neck Exam Present: supple. Absent: lymphadenopathy <Pia Ellison 01/18/19 08:46> - *Routine Respiratory Exam Present: CTA bilaterally <Pia Ellison 01/18/19 08:46> - *Routine Cardiovascular Exam Present: RRR <Pia Ellison 01/18/19 08:46> - *Routine Abdominal Exam Present: soft, normoactive bowel sounds. Absent: tenderness <Pia Ellison 01/18/19 08:46> - *Routine Extremities Exam Absent: cyanosis, clubbing, edema <Pia Ellison 01/18/19 08:46> - *Routine Skin Exam Present: warm. Absent: rash <Pia Ellison 01/18/19 08:46> - *Routine Neurological Exam Present: motor deficit (left arm weakness), altered mental status. Absent: normal speech <Pia Ellison 01/18/19 08:46> H&P: Result - Impressions Head CT - nothing acute CXR - No acute finding. Mild prominence of the aortic arch left hilum which may be due to the technique. Consider follow-up for confirmation <Pia Ellison 01/18/19 08:46> Assessment and Plan (1) Altered mental status Current visit: Yes Status: Acute Qualifiers: Altered mental status type: unspecified Qualified Code(s): R41.82 - Altered mental status, unspecified Category: Medical Code(s): R41.82 - Altered mental status, unspecified (2) Weakness Current visit: No Status: Acute Category: Medical Code(s): R53.1 - Weakness (3) GERD (gastroesophageal reflux disease) Current visit: No Status: Chronic Category: Medical Code(s): K21.9 - Gastro-esophageal reflux disease without esophagitis (4) Anemia Current visit: No Status: Chronic Category: Medical Code(s): D64.9 - Anemia, unspecified (5) Anxiety and depression Current visit: No Status: Chronic Category: Medical Code(s): F41.9 - Anxiety disorder, unspecified; F32.9 - Major depressive disorder, single episode, unspecified (6) Benign essential tremor Current visit: No Status: Chronic Category: Medical Code(s): G25.0 - Essential tremor (7) Degenerative disc disease, cervical Current visit: No Status: Chronic Category: Medical Code(s): M50.30 - Other cervical disc degeneration, unspecified cervical region (8) Degenerative disc disease, lumbar Current visit: No Status: Chronic Category: Medical Code(s): M51.36 - Other intervertebral disc degeneration, lumbar region <Pia Ellison - 01/18/19 08:27> (1) Acute CVA (cerebrovascular accident) Current visit: Yes Status: Acute Category: Medical Code(s): I63.9 - Cerebral infarction, unspecified (2) Altered mental status Current visit: Yes Status: Acute Qualifiers: Altered mental status type: unspecified Qualified Code(s): R41.82 - Altered mental status, unspecified Category: Medical Code(s): R41.82 - Altered mental status, unspecified (3) Weakness Current visit: No Status: Acute Category: Medical Code(s): R53.1 - Weakness (4) GERD (gastroesophageal reflux disease) Current visit: No Status: Chronic Category: Medical Code(s): K21.9 - Gastro-esophageal reflux disease without esophagitis (5) Anemia Current visit: No Status: Chronic Category: Medical Code(s): D64.9 - Anemia, unspecified (6) Anxiety and depression Current visit: No Status: Chronic Category: Medical Code(s): F41.9 - Anxiety disorder, unspecified; F32.9 - Major depressive disorder, single episode, unspecified (7) Benign essential tremor Current visit: No Status: Chronic Category: Medical Code(s): G25.0 - Essential tremor (8) Degenerative disc disease, cervical Current visit: No Status: Chronic Category: Medical Code(s): M50.30 - Other cervical disc degeneration, unspecified cervical region (9) Degenerative disc disease, lumbar Current visit: No Status: Chronic Category: Medical Code(s): M51.36 - Other intervertebral disc degeneration, lumbar region <Nick Salguero - 01/18/19 12:43> - Assessment and plan all Dx Assessment and Plan for all problems:: Patient seen and examined this morning. She is lying comfortably in bed and denies pain. She is alert but appears very weak. Her voice is weak but she answers questions appropriately. In addition to her steady decline over the last few weeks she has had a rather acute change since yesterday and CVAs certainly in the differential. I have spoken at length with her granddaughter whose father is the POA. Family has noticed a steady decline in her condition feel that she has "given up". Her granddaughter has heard her voice the fact that she just wants to . Plan is to repeat her CT scan with contrast today. Her rehab potential is poor. I have discussed the option of hospice referral and the family will consider this. <Noemy,Nick Hicks - 01/18/19 12:43> Patient's CT showed nothing acute but she has likely had a stroke. We will add potassium for hypokalemia. Will discuss further care with Dr. Salguero. <Pia Ellison - 01/18/19 08:46>
[2019-01-19 06:17] LABS: Anion Gap 10.6 mEq/L (5-15); Calcium 9.3 mg/dL (8.5-10.1)
--- NOTE | 2019-01-19 08:44 | Progress Note ---
<Pia Ellison - Last Filed: 01/19/19 08:42> Internal Medicine - PN: Subj *Date: 01/19/19 *Time: 08:42 Interval history: The patient seems to be doing a little bit better this morning. She is able to answer questions and can carry on a conversation with normal speech. She states she is tired. She denies any pain. According to nursing staff, they have had a hard time getting her to eat. They also state that her son voiced the fact that he would like the patient to have hospice. Exam Vital signs and Labs for Last 24 Hours: Temp Pulse Resp BP Pulse Ox 98.2 F 85 20 152/65 H 95 01/19/19 04:00 01/19/19 04:00 01/19/19 04:00 01/19/19 04:00 01/19/19 08:30 Laboratory Results - last 24 hr 01/19/19 05:45: Sodium 141, Potassium 3.6, Chloride 106, Carbon Dioxide 28, Anion Gap 10.6, BUN 10, Creatinine 0.77, Estimated Creat Clear 41, Estimated GFR 72, Est GFR ( Amer) 87, Glucose 94, Calcium 9.3 I & O for Last 24 hours: Intake & Output 01/16/19 01/17/19 01/18/19 01/19/19 11:59 11:59 11:59 11:59 Intake Total 763 / 763 2145 / 2145 Output Total 500 / 500 875 / 875 Balance 263 / 263 1270 / 1270 Weight 127 lb 2.002 oz 129 lb 2.002 oz Radiology Reports for the Last 24 Hours: Repeat head CT Possible area of infarction in the left occipital lobe. No evidence of hemorrhage. No midline shift. Suggest confirmation with MRI. - Constitutional no acute distress - *Routine Respiratory Exam Present: CTA bilaterally - *Routine Cardiovascular Exam Present: RRR - *Routine Abdominal Exam Present: soft, normoactive bowel sounds. Absent: tenderness - *Routine Extremities Exam Absent: cyanosis, clubbing, edema - *Routine Skin Exam Present: warm. Absent: rash - *Routine Neurological Exam Present: alert, oriented X3 speech has improved Assessment and Plan (1) Acute CVA (cerebrovascular accident) Current visit: Yes Status: Acute Category: Medical Code(s): I63.9 - Cerebral infarction, unspecified (2) Altered mental status Current visit: Yes Status: Acute Qualifiers: Altered mental status type: unspecified Qualified Code(s): R41.82 - Altered mental status, unspecified Category: Medical Code(s): R41.82 - Altered mental status, unspecified (3) Weakness Current visit: No Status: Acute Category: Medical Code(s): R53.1 - Weakness (4) GERD (gastroesophageal reflux disease) Current visit: No Status: Chronic Category: Medical Code(s): K21.9 - Gastro-esophageal reflux disease without esophagitis (5) Anemia Current visit: No Status: Chronic Category: Medical Code(s): D64.9 - Anemia, unspecified (6) Anxiety and depression Current visit: No Status: Chronic Category: Medical Code(s): F41.9 - Anxiety disorder, unspecified; F32.9 - Major depressive disorder, single episode, unspecified (7) Benign essential tremor Current visit: No Status: Chronic Category: Medical Code(s): G25.0 - Essential tremor (8) Degenerative disc disease, cervical Current visit: No Status: Chronic Category: Medical Code(s): M50.30 - Other cervical disc degeneration, unspecified cervical region (9) Degenerative disc disease, lumbar Current visit: No Status: Chronic Category: Medical Code(s): M51.36 - Other intervertebral disc degeneration, lumbar region - Assessment and plan all Dx Assessment and Plan for all problems:: Radiology recommends an MRI to confirm possible stroke, however, if the patient's family wishes her to have hospice, we will likely forego the MRI. Will discuss further care with Dr. Salguero. <Nick Salguero - Last Filed: 01/19/19 09:32> Internal Medicine - PN: Subj *Date: 01/19/19 *Time: 09:23 Exam Vital signs and Labs for Last 24 Hours: Temp Pulse Resp BP Pulse Ox 99.2 F 86 16 154/73 H 95 01/19/19 08:00 01/19/19 08:00 01/19/19 08:00 01/19/19 08:00 01/19/19 08:30 Laboratory Results - last 24 hr 01/19/19 05:45: Sodium 141, Potassium 3.6, Chloride 106, Carbon Dioxide 28, Anion Gap 10.6, BUN 10, Creatinine 0.77, Estimated Creat Clear 41, Estimated GFR 72, Est GFR ( Amer) 87, Glucose 94, Calcium 9.3 I & O for Last 24 hours: Intake & Output 01/16/19 01/17/19 01/18/19 01/19/19 11:59 11:59 11:59 11:59 Intake Total 763 / 763 2265 / 2265 Output Total 500 / 500 875 / 875 Balance 263 / 263 1390 / 1390 Weight 127 lb 2.002 oz 129 lb 2.002 oz Assessment and Plan (1) Acute CVA (cerebrovascular accident) Current visit: Yes Status: Acute Category: Medical Code(s): I63.9 - Cerebral infarction, unspecified (2) Altered mental status Current visit: Yes Status: Acute Qualifiers: Altered mental status type: unspecified Qualified Code(s): R41.82 - Altered mental status, unspecified Category: Medical Code(s): R41.82 - Altered mental status, unspecified (3) Weakness Current visit: No Status: Acute Category: Medical Code(s): R53.1 - Weakness (4) GERD (gastroesophageal reflux disease) Current visit: No Status: Chronic Category: Medical Code(s): K21.9 - Gastro-esophageal reflux disease without esophagitis (5) Anemia Current visit: No Status: Chronic Category: Medical Code(s): D64.9 - Anemia, unspecified (6) Anxiety and depression Current visit: No Status: Chronic Category: Medical Code(s): F41.9 - Anxiety disorder, unspecified; F32.9 - Major depressive disorder, single episode, unspecified (7) Benign essential tremor Current visit: No Status: Chronic Category: Medical Code(s): G25.0 - Essential tremor (8) Degenerative disc disease, cervical Current visit: No Status: Chronic Category: Medical Code(s): M50.30 - Other cervical disc degeneration, unspecified cervical region (9) Degenerative disc disease, lumbar Current visit: No Status: Chronic Category: Medical Code(s): M51.36 - Other intervertebral disc degeneration, lumbar region (10) Hypokalemia Current visit: Yes Status: Acute Category: Medical Code(s): E87.6 - Hypokalemia - Assessment and plan all Dx Assessment and Plan for all problems:: Patient seen and examined this morning. She rested some last night but is complaining of pain in her neck that is relieved by the morphine. Will add Flexeril today. She does seem more alert this morning and voice is a bit stronger. She is not eating much stating she does not like the pured co nsistency of the food. I spoke with her and her son last evening regarding the findings on the CT scan. She is not a candidate for MRI due to her implanted pain pump. MRI findings would not change the plan of treatment at this time. She does not have good rehab potential. Her son indicated he would like to consider taking her home with hospice and plan to discuss this with other family members this weekend.
--- NOTE | 2019-01-20 08:03 | Progress Note ---
Internal Medicine - PN: Subj *Date: 01/20/19 *Time: 08:14 Interval history: Chief complaint is still her neck pain. She does not think the morphine helps much. Appetite remains poor. Denies abdominal pain or nausea. No bowel movement. Exam Vital signs and Labs for Last 24 Hours: Temp Pulse Resp BP Pulse Ox 98.7 F 75 17 148/66 H 93 L 01/20/19 04:00 01/20/19 04:00 01/20/19 04:00 01/20/19 04:00 01/20/19 04:00 Laboratory Results - last 24 hr 01/19/19 14:54: POC Glucose 177 H I & O for Last 24 hours: Intake & Output 01/17/19 01/18/19 01/19/19 01/20/19 11:59 11:59 11:59 10:59 Intake Total 763 / 763 2265 / 2265 1271 / 1271 Output Total 500 / 500 875 / 875 1300 / 1300 Balance 263 / 263 1390 / 1390 -29 / -29 Weight 127 lb 2.002 oz 129 lb 2.002 oz Narrative: She remains alert and oriented. Color is slightly pale. She appears in no distress. Lungs are clear. Heart is regular. Abdomen is soft and nondistended with no tenderness. Extremities no edema. Assessment and Plan (1) Acute CVA (cerebrovascular accident) Current visit: Yes Status: Acute Category: Medical Code(s): I63.9 - Cerebral infarction, unspecified (2) Altered mental status Current visit: Yes Status: Acute Qualifiers: Altered mental status type: unspecified Qualified Code(s): R41.82 - Altered mental status, unspecified Category: Medical Code(s): R41.82 - Altered mental status, unspecified (3) Weakness Current visit: No Status: Acute Category: Medical Code(s): R53.1 - Weakness (4) GERD (gastroesophageal reflux disease) Current visit: No Status: Chronic Category: Medical Code(s): K21.9 - Gastro-esophageal reflux disease without esophagitis (5) Anemia Current visit: No Status: Chronic Category: Medical Code(s): D64.9 - Anemia, unspecified (6) Anxiety and depression Current visit: No Status: Chronic Category: Medical Code(s): F41.9 - Anxiety disorder, unspecified; F32.9 - Major depressive disorder, single episode, unspecified (7) Benign essential tremor Current visit: No Status: Chronic Category: Medical Code(s): G25.0 - Essential tremor (8) Degenerative disc disease, cervical Current visit: No Status: Chronic Category: Medical Code(s): M50.30 - Other cervical disc degeneration, unspecified cervical region (9) Degenerative disc disease, lumbar Current visit: No Status: Chronic Category: Medical Code(s): M51.36 - Other intervertebral disc degeneration, lumbar region (10) Hypokalemia Current visit: Yes Status: Acute Category: Medical Code(s): E87.6 - Hypokalemia - Assessment and plan all Dx Assessment and Plan for all problems:: We will discontinue the morphine and start her on hydrocodone she was taking at home. She feels this works better. We will add MiraLAX for her constipation. She tells me her family has decided to take her home with hospice. She is agreeable with this plan. Her granddaughter will be her primary weigh machine operator. We will begin disposition plans tomorrow with care management
--- NOTE | 2019-01-21 08:09 | Progress Note ---
Internal Medicine - PN: Subj *Date: 01/21/19 *Time: 08:18 Interval history: Rested fairly well. No new complaints. +BM. She requires assistance with all ADLs. Exam Vital signs and Labs for Last 24 Hours: Temp Pulse Resp BP Pulse Ox 97.9 F 70 17 162/77 H 96 01/21/19 00:00 01/21/19 04:00 01/21/19 00:00 01/21/19 00:00 01/21/19 00:00 Laboratory Results - last 24 hr 01/20/19 11:11: POC Glucose 122 H 01/20/19 16:20: POC Glucose 121 H I & O for Last 24 hours: Intake & Output 01/18/19 01/19/19 01/20/19 01/21/19 12:59 12:59 11:59 11:59 Intake Total 1444 / 1444 Output Total 650 / 650 Balance 794 / 794 Weight 129 lb Narrative: Remains alert but very weak. She is oriented. Speech is clear. Lungs clear. Heart regular. No edema. Assessment and Plan (1) Acute CVA (cerebrovascular accident) Current visit: Yes Status: Acute Category: Medical Code(s): I63.9 - Cerebral infarction, unspecified (2) Altered mental status Current visit: Yes Status: Acute Qualifiers: Altered mental status type: unspecified Qualified Code(s): R41.82 - Altered mental status, unspecified Category: Medical Code(s): R41.82 - Altered mental status, unspecified (3) Weakness Current visit: No Status: Acute Category: Medical Code(s): R53.1 - Weakness (4) GERD (gastroesophageal reflux disease) Current visit: No Status: Chronic Category: Medical Code(s): K21.9 - Gastro-esophageal reflux disease without esophagitis (5) Anemia Current visit: No Status: Chronic Category: Medical Code(s): D64.9 - Anemia, unspecified (6) Anxiety and depression Current visit: No Status: Chronic Category: Medical Code(s): F41.9 - Anxiety disorder, unspecified; F32.9 - Major depressive disorder, single episode, unspecified (7) Benign essential tremor Current visit: No Status: Chronic Category: Medical Code(s): G25.0 - Essential tremor (8) Degenerative disc disease, cervical Current visit: No Status: Chronic Category: Medical Code(s): M50.30 - Other cervical disc degeneration, unspecified cervical region (9) Degenerative disc disease, lumbar Current visit: No Status: Chronic Category: Medical Code(s): M51.36 - Other intervertebral disc degeneration, lumbar region (10) Hypokalemia Current visit: Yes Status: Acute Category: Medical Code(s): E87.6 - Hypokalemia - Assessment and plan all Dx Assessment and Plan for all problems:: She wants to go home with Hospice. Hospice consult today.
--- NOTE | 2019-01-22 08:12 | Progress Note ---
<Audra Salter - Last Filed: 01/22/19 08:09> Internal Medicine - PN: Subj *Date: 01/22/19 *Time: 08:09 Interval history: Patient had an okay day yesterday. Eats very little. Bowels did move yesterday. She continues with a Ward catheter. Denies chest pain and short ness of breath. States her hands hurt. Patient plans going home with hospice today. Exam Vital signs and Labs for Last 24 Hours: Temp Pulse Resp BP Pulse Ox 97.8 F 82 17 126/77 97 01/22/19 04:00 01/22/19 04:00 01/22/19 04:00 01/22/19 04:00 01/22/19 04:00 Laboratory Results - last 24 hr 01/21/19 12:20: POC Glucose 100 01/21/19 16:51: POC Glucose 101 01/22/19 06:39: POC Glucose 105 I & O for Last 24 hours: Intake & Output 01/19/19 01/20/19 01/21/19 01/22/19 12:59 11:59 11:59 11:59 Intake Total 1494 / 1494 1371 / 1371 Output Total 650 / 650 750 / 750 Balance 844 / 844 621 / 621 Weight 129 lb 128 lb 15.985 oz - Constitutional no acute distress - *Routine Respiratory Exam Present: CTA bilaterally - *Routine Cardiovascular Exam Present: RRR - *Routine Abdominal Exam Present: soft. Absent: tenderness, distended - *Routine Extremities Exam Absent: edema, calf tenderness - *Routine Neurological Exam Present: alert, oriented X3, normal speech Assessment and Plan (1) Acute CVA (cerebrovascular accident) Current visit: Yes Status: Acute Category: Medical Code(s): I63.9 - Cerebr al infarction, unspecified (2) Altered mental status Current visit: Yes Status: Acute Qualifiers: Altered mental status type: unspecified Qualified Code(s): R41.82 - Altered mental status, unspecified Category: Medical Code(s): R41.82 - Altered mental status, unspecified (3) Weakness Current visit: No Status: Acute Category: Medical Code(s): R53.1 - Weakness (4) GERD (gastroesophageal reflux disease) Current visit: No Status: Chronic Category: Medical Code(s): K21.9 - Gastro-esophageal reflux disease without esophagitis (5) Anemia Current visit: No Status: Chronic Category: Medical Code(s): D64.9 - Anemia, unspecified (6) Anxiety and depression Current visit: No Status: Chronic Category: Medical Code(s): F41.9 - Anx iety disorder, unspecified; F32.9 - Major depressive disorder, single episode, unspecified (7) Benign essential tremor Current visit: No Status: Chronic Category: Medical Code(s): G25.0 - Essential tremor (8) Degenerative disc disease, cervical Current visit: No Status: Chronic Category: Medical Code(s): M50.30 - Other cervical disc degeneration, unspecified cervical region (9) Degenerative disc disease, lumbar Current visit: No Status: Chronic Category: Medical Code(s): M51.36 - Other intervertebral disc degeneration, lumbar region (10) Hypokalemia Current visit: Yes Status: Acute Category: Medical Code(s): E87.6 - Hypokalemia - Assessment and plan all Dx Assessment and Plan for all problems:: Patient going home with hospice today. Granddaughter will be taking care of her. <Nick Salguero - Last Filed: 01/22/19 08:28> Internal Medicine - PN: Subj *Date: 01/22/19 *Time: 08:27 Exam Vital signs and Labs for Last 24 Hours: Temp Pulse Resp BP Pulse Ox 98.9 F 86 17 154/69 H 91 L 01/22/19 08:00 01/22/19 08:00 01/22/19 08:00 01/22/19 08:00 01/22/19 08:00 Laboratory Results - last 24 hr 01/21/19 12:20: POC Glucose 100 01/21/19 16:51: POC Glucose 101 01/22/19 06:39: POC Glucose 105 I & O for Last 24 hours: Intake & Output 01/19/19 01/20/19 01/21/19 01/22/19 12:59 11:59 11:59 11:59 Intake Total 1494 / 1494 1431 / 1431 Output Total 650 / 650 750 / 750 Balance 844 / 844 681 / 681 Weight 129 lb 128 lb 15.985 oz Assessment and Plan (1) Acute CVA (cerebrovascular accident) Current visit: Yes Status: Acute Category: Medical Code(s): I63.9 - Cerebral infarction, unspecified (2) Altered mental status Current visit: Yes Status: Acute Qualifiers: Altered mental status type: unspecified Qualified Code(s): R41.82 - Altered mental status, unspecified Category: Medical Code(s): R41.82 - Altered mental status, unspecified (3) Weakness Current visit: No Status: Acute Category: Medical Code(s): R53.1 - Weakness (4) GERD (gastroesophageal reflux disease) Current visit: No Status: Chronic Category: Medical Code(s): K21.9 - Gastro-esophageal reflux disease without esophagitis (5) Anemia Current visit: No Status: Chronic Category: Medical Code(s): D64.9 - Anemia, unspecified (6) Anxiety and depression Current visit: No Status: Chronic Category: Medical Code(s): F41.9 - Anxiety disorder, unspecified; F32.9 - Major depressive disorder, single episode, unspecified (7) Benign essential tremor Current visit: No Status: Chronic Category: Medical Code(s): G25.0 - Essential tremor (8) Degenerative disc disease, cervical Current visit: No Status: Chronic Category: Medical Code(s): M50.30 - Other cervical disc degeneration, unspecified cervical region (9) Degenerative disc disease, lumbar Current visit: No Status: Chronic Category: Medical Code(s): M51.36 - Other intervertebral disc degeneration, lumbar region (10) Hypokalemia Current visit: Yes Status: Acute Category: Medical Code(s): E87.6 - Hypokalemia - Assessment and plan all Dx Assessment and Plan for all problems:: Patient seen and examined. Concur with plan for discharge with Hospice.
--- NOTE | 2019-01-28 13:21 | Discharge Summary ---
General - General Admission date:: 01/18/19 <NoemyNick - 02/03/19 22:52> 01/18/19 <Audra Salter - 01/28/19 13:29> Discharge date: 01/22/19 <JoieAudra - 01/28/19 13:29> HPI HPI: Ms. Linda is an 83-year-old female who was recently discharged from [facility] after suffering a stroke. She went to [facility] for rehabilitation and was doing well while at [facility]. She was then transferred to [facility] where her family members state she had a steadily decline. According to family members, 3 to 4 days ago she could carry on a normal conversation. Per the ER note, at approximately 1830 last night, the [facility] staff noticed a decrease in level of consciousness and the patient became lethargic and was hard to arouse. She had just received pain medication and her blood pressure dropped when vitals were assessed. She was given Narcan nasally in route via EMS. Head CT showed nothing acute in the emergency room. She was a dmitted with a diagnosis of altered mental status. The following AM the patient's speech was very garbled. She seemed to have some weakness on the left side. Her family stated this was a big change from the previous 3 to 4 days. <JoieAudra - 01/28/19 13:29> Hospital Course Hospital Course: On admission from the emergency room patient showed definite changes with garbled speech and weakness on the left side. The family noted a steady decline over the previous few weeks and felt that she had given up. She did actually say that she wanted to . She was hypokalemic and received potassium supplementation she did begin to feel better and was able to carry on conversation the second day of hospitalization. Her voice was stronger. Initial CT of the head showed no acute changes. Repeat CT did reveal possible area of infarction in the left occipital lobe. Patient unable to have MRI due to pain pump implantation. Patient also experienced some neck pain which morphine did not resolve. Morphine was discontinued and she was started on hydrocodone which she takes at home. Flexeril was also added. Patient continued to be more alert and had a stronger voice. She needed assistance with all activities of daily living. She never did eat very well. She had MiraLAX for her constipation. Disposition was discussed with son and family as to going home with hospice. Hospice was consulted and accepted her for care. Patient was to go home with the granddaughter providing her care. On 01/22/2019 patient was stable for discharge. She was discharged to home in stable and fair condition. <Audra Salter - 01/28/19 13:36> Objective Vital signs: Temp Pulse Resp BP Pulse Ox 98.9 F 86 17 154/69 H 91 L 01/22/19 08:00 01/22/19 08:00 01/22/19 08:00 01/22/19 08:00 01/22/19 08:00 <Nick Salguero - 02/03/19 22:52> Temp Pulse Resp BP Pulse Ox 98.9 F 86 17 154/69 H 91 L 01/22/19 08:00 01/22/19 08:00 01/22/19 08:00 01/22/19 08:00 01/22/19 08:00 <Audra Salter - 01/28/19 13:29> Narrative: Exam Vital signs and Labs for Last 24 Hours: Temp Pulse Resp BP Pulse Ox 97.8 F 82 17 126/77 97 01/22/19 04:00 01/22/19 04:00 01/22/19 04:00 01/22/19 04:00 01/22/19 04:00 Laboratory Results - last 24 hr 01/21/19 12:20: POC Glucose 100 01/21/19 16:51: POC Glucose 101 01/22/19 06:39: POC Glucose 105 I & O for Last 24 hours: Intake & Output 01/19/19 01/20/19 01/21/19 01/22/19 12:59 11:59 11:59 11:59 Intake Total 1494 / 1494 1371 / 1371 Output Total 650 / 650 750 / 750 Balance 844 / 844 621 / 621 Weight 129 lb 128 lb 15.985 oz - Constitutional no acute distress - *Routine Respiratory Exam Present: CTA bilaterally - *Routine Cardiovascular Exam Present: RRR - *Routine Abdominal Exam Present: soft. Absent: tenderness, distended - *Routine Extremities Exam Absent: edema, calf tenderness - *Routine Neurological Exam Present: alert, oriented X3, normal speech <Audra Salter - 01/28/19 13:36> Results Completed studies during hospitalization [Text1]: 01/17/2019 CT of the head MPRESSION: No acute intracranial finding 01/17/2019 chest x-ray IMPRESSION: Admission no acute finding. Mild prominence of the aortic arch left hilum Patient has altered he has been worked up for more have not no [place] he just had a left trouble turning the floor but okay which may be due to the technique. Consider follow-up for confirmation 01/18/[address] of the head IMPRESSION: Possible area of infarction in the left occipital lobe. No evidence of hemorrhage. No midline shift. Suggest confirmation with MRI. <Audra Salter - 01/28/19 13:29> DS: Diagnosis - Discharge Diagnosis (1) Acute CVA (cerebrovascular accident) Status: Acute (2) Altered mental status Status: Acute (3) Weakness Status: Acute (4) GERD (gastroesophageal reflux disease) Status: Chronic (5) Anemia Status: Chronic (6) Anxiety and depression Status: Chronic (7) Benign essential tremor Status: Chronic (8) Degenerative disc disease, cervical Status: Chronic (9) Degenerative disc disease, lumbar Status: Chronic (10) Hypokalemia Status: Acute <Nick Salguero - 02/03/19 22:52> (1) Acute CVA (cerebrovascular accident) Status: Acute (2) Altered mental status Status: Acute (3) Weakness Status: Acute (4) GERD (gastroesophageal reflux disease) Status: Chronic (5) Anemia Status: Chronic (6) Anxiety and depression Status: Chronic (7) Benign essential tremor Status: Chronic (8) Degenerative disc disease, cervical Status: Chronic (9) Degenerative disc disease, lumbar Status: Chronic (10) Hypokalemia Status: Acute <Audra Salter - 01/28/19 13:36> Discharge Plan - Patient Discharge Instructions ACTIVITY: Limited activity <Audra Salter - 01/28/19 13:29> DIET: continue same diet <Audra Salter 01/28/19 13:29> Patient Instructions: DI for Stroke-Ischemic, DI for Altered Mental Status <Nick Salguero - 02/03/19 22:52> Forms: <Nick Salguero - 02/03/19 22:52> - Follow up Plan Follow up with: Nick Salguero MD [Primary Care Provider] - (follow up with Hospice and family Call for appointment as needed.) <Nick Salguero - 02/03/19 22:52> Disposition: Hospice - Home <Nick Salguero - 02/03/19 22:52> Home Medications: Home Medications Medication Instructions Recorded Confirmed Type tizanidine 4 mg capsule 4 mg PO HS cap 09/06/17 01/18/19 History Acetaminophen 325 mg PO Q6HP PRN 01/17/19 01/17/19 History Docusate Sodium 100mg Cap 100 mg PO BID 01/17/19 01/17/19 History Famotidine [Pepcid] 20 mg PO DAILY 01/17/19 01/17/19 History Lidocaine HCl 1 applicatio TOPICAL DAILY 01/17/19 01/18/19 History Ondansetron HCl [Ondansetron 4mg 4 mg PO Q8HP PRN 01/17/19 01/17/19 History Tablet] Polyethylene Glycol 3350 17 gr PO DAILY 01/17/19 01/17/19 History Hydrocodone/Acetaminophen 1 tab PO Q6HP PRN #0 tab 01/20/19 01/18/19 Rx [Hydrocodone-Acetamin 10-325 mg] Famotidine [Pepcid 20mg Tablet] 20 mg PO HS tab 01/22/19 Rx Morphine Sulfate [Roxanol 20mg/mL 10 mg PO Q4HP PRN #30 ml 01/22/19 Rx 1mL oral soln UDC] <Nick Salguero - 02/03/19 22:52> Prescriptions/Medication Reconciliation: New Morphine Sulfate [Roxanol 20mg/mL 1mL oral soln UDC] 10 mg PO Q4HP PRN #30 ml PRN Reason: Moderate To Severe Pain Famotidine [Pepcid 20mg Tablet] 20 mg PO HS tab Continued tizanidine 4 mg capsule 4 mg PO HS cap Docusate Sodium 100mg Cap 100 mg PO BID Lidocaine HCl 1 applicatio TOPICAL DAILY Famotidine [Pepcid] 20 mg PO DAILY Ondansetron HCl [Ondansetron 4mg Tablet] 4 mg PO Q8HP PRN PRN Reason: Nausea Polyethylene Glycol 3350 17 gr PO DAILY Acetaminophen 325 mg PO Q6HP PRN PRN Reason: Mild Pain,Fever,Headache Changed Hydrocodone/Acetaminophen [Hydrocodone-Acetamin 10-325 mg] 1 tab PO Q6HP PRN #0 tab PRN Reason: PAIN Discontinued cholecalciferol (vitamin D3) 1,000 unit capsule 1,000 unit PO DAILY cap aspirin 81 mg tablet,delayed release 81 mg PO DAILY tab trazodone 50 mg tablet 100 mg PO HS #90 tab Ferrous Sulfate [Ferrous Sulfate 325mg Tablet] 325 mg PO DAILY Mirtazapine [Remeron] 15 mg PO HS diazePAM [Valium] 5 mg PO BID Ascorbic Acid 500 mg PO DAILY Metformin HCl [Glucophage 500mg Tablet] 500 mg PO BID Amlodipine 5mg tab 5 mg PO BID Menthol/Zinc Oxide [Menthol-Zinc Oxide 0.45%-20%] 1 applicatio TP BID Rosuvastatin 20 mg PO HS guaiFENesin [Mucinex 600mg tablet] 600 mg PO BID <Nick Salguero - 02/03/19 22:52> - Problem Reconciliation Problems Reviewed?: Yes <Nick Salguero - 02/03/19 22:52> Yes <Audra Salter - 01/28/19 13:36> - Additional Information Additional Information: Patient seen and examined. Concur with plan for discharge. <Nick Salguero - 02/03/19 22:52>
== END 2019-01-22 11:05 | disposition hospice, home (50) | DRG 65 ==
LOC: ER 20:13 → 2ND 20:13
PROVIDERS: ADMIT Family Medicine; ATTEND Family Medicine
CPT/HCPCS: 36415; 70450; 70470; 71010; 71045; 80048; 80053; 80305; 81001; 82962; 84484; 85025; 85651; 86140; 93005; 99285; G0378; Q9967